=== PATIENT | female | born 1950 | race Caucasian/White ===

== ENCOUNTER → 2016-05-19 | Outpatient (CLI) | payer MEDICARE ==
[~2016-05-19] MED LIST: HYDR-3535 PO; MUSCLE RELAXANT; PREG75 PO; PRIM50TA PO; VENL50TA PO; WALKER ROLLING; XANA2TAB2 PO
[2016-05-19 12:23] LABS: AUTOMATED NEUTROPHIL # 5.2 TH/MM3 (1.8-7.7); BASOPHIL % 0.6 % (0.0-2.0); EOSINOPHIL # 0.1 TH/MM3 (0-0.4); EOSINOPHIL % 1.4 % (0.0-4.0); HEMO FLAGS DIFF FINAL; LYMPH % 23.1 % (9.0-44.0); LYMPHOCYTE # 1.8 TH/MM3 (1.0-4.8); MEAN CELL VOLUME 94.4 FL (80.0-100.0); MEAN CORPUSCULAR HEMOGLOBIN 31.1 PG (27.0-34.0); MONO % 5.9 % (0.0-8.0); PLATELET COUNT 278 TH/MM3 (150-450); RED BLOOD COUNT 4.77 MIL/MM3 (4.00-5.30); RED CELL DISTRIBUTION WIDTH 13.6 % (11.6-17.2); WHITE BLOOD COUNT 7.6 TH/MM3 (4.0-11.0)
[2016-05-19 12:51] LABS: BLOOD, URINE NEG (NEG); GLUCOSE,URINE NEG (NEG); HYALINE CAST, URINE 1 /lpf (RARE); KETONE, URINE NEG (NEG); MUCUS URINE FEW /lpf (OCC); NITRITE,URINE NEG (NEG); PH, URINE 6.5 (5.0-8.5); SQUAMOUS EPITHELIAL CELL URINE <1 /hpf (0-5); URINE COLOR LIGHT-YELLOW (YELLW/STRAW)
[2016-05-19 13:12] LABS: ALKALINE PHOSPHATASE 122 U/L (45-117); ALT (GPT) 15 U/L (10-53); ANION GAP 5 MEQ/L (5-15); AST (GOT) 10 U/L (15-37); BICARBONATE 29.9 MEQ/L (21.0-32.0); BLOOD UREA NITROGEN 13 MG/DL (7-18); CHLORIDE 103 MEQ/L (98-107); GLOMERULAR FILTRATION RATE 82 ML/MIN (>89); GLUCOSE,FASTING 93 MG/DL (74-99); HDL CHOLESTEROL 76.6 MG/DL (40.0-60.0); LDL CHOLESTEROL 139 MG/DL (0-99); SODIUM (NA) 138 MEQ/L (136-145); THYROXINE (T4) 7.5 MCG/DL (4.8-13.9); TOTAL BILIRUBIN ADULT 0.3 MG/DL (0.2-1.0)
== END ==
LOC: PLAB 10:09
DX: M50.00 Cervical disc disorder with myelopathy, unspecified cervical region (principal); E78.5 Hyperlipidemia, unspecified; Z12.11 Encounter for screening for malignant neoplasm of colon; R53.83 Other fatigue
CPT/HCPCS: 36415; 80053; 80061; 81001; 84436; 84443; 84480; 85025

== ENCOUNTER → 2017-02-27 | Day surgery (SDC) | payer MEDICARE ==
[~2017-02-27] VITALS: Ht 170.2 cm; Wt 105.5 kg
[~2017-02-27] MED LIST changes: +*RESP: ALBUTEROL 2.5 MG/3 ML NEB (PRN) PERIprocedural Use ONLY NEB ONE; +ACETAMINOPHEN/HYDROcodone 325 MG/5 MG TAB PO PRN; +BUPIVACAINE HCL PF 0.25% 30 ML VIAL ONE; +BUPIVACAINE/EPINEPHRINE 0.25% 50 ML VIAL ONE; +CHLORHEXIDINE GLUCONATE 2 % 1 PACK (2 CLOTHS) TOPICAL PRN; +CHLORHEXIDINE GLUCONATE 4% SOLN 120 ML BTL TOPICAL SCH; +CLINDAMYCIN 900 MG/NS 100 ML IV SCH; +DO NOT ADM ANY ANTICOAGULANT DRUGS PRN; +GABA300C5 PO; +GENTAMICIN SULFATE 80 MG/2 ML VIAL ONE; +GLYCOPYRROLATE 1 MG/5 ML SYRINGE IV PUSH ONE; +HYDR-3583 PO; +INSULIN HUMAN REGULAR 1,000 UNITS/10 ML VIAL SQ PRN; +LACTATED RINGER'S 1000 ML IV PRN; +LIDOCAINE HCL 1% PF 5 ML AMPULE OTHER ONE; +METOPROLOL TARTRATE 25 MG TAB PO PRN; +MORPHINE SULFATE 4 MG/ML INJ IV PUSH PRN; +NEOSTIGMINE 3 MG/3 ML SYR IV ONE; +ONDANSETRON HCL 4 MG/2 ML VIAL IV PUSH ONE; +ONDANSETRON HCL 4 MG/2 ML VIAL IV PUSH PRN; +PHENYLEPH/NS 1000 MCG/10 ML SYR IV ONE; +PRIM50TA5 PO; +PROPOFOL 200 MG/20 ML AMP IV ONE; +ROCURONIUM INJ 50 MG/5 ML SYRINGE IV PUSH ONE; +SODIUM CHLOR 0.9% 250 ML INJ 0 ML ONE; +SODIUM CHLORID 0.9% 500 ML IV PRN; +SODIUM CHLORIDE 0.9% FLUSH 10 ML FLUSH IV FLUSH PRN; +SODIUM CHLORIDE 0.9% FLUSH 10 ML FLUSH IV FLUSH SCH; +TEMA30CA PO; +TRAM50TA PO; +VALG1TAB PO; +VANCOMYCIN HCL 1000 MG VIAL ONE; +VENL75TA PO; +ceFAZolin INJ 1,000 MG VIAL ONE
--- NOTE | 2017-02-27 08:14 | RADRPT ---
EXAM DATE/TIME: 02/27/2017 06:58 [facility] COMPARISON: No previous studies available for comparison. INDICATIONS : Evaluate for pneumonia, pneumothorax, or communicable disease. Pre op left hand surgery. MEDICAL HISTORY : None. SURGICAL HISTORY : None. ENCOUNTER: Initial ACUITY: 1 day PAIN SCORE: 0/10 LOCATION: Bilateral chest FINDINGS: A single view of the chest demonstrates the lungs to be hyperaerated without evidence of mass, infilt rate or effusion. The cardiomediastinal contours are unremarkable. Osseous structures are intact. CONCLUSION: 1. COPD 2. No acute process. Zac Anand MD on February 27, 2017 at 8:11 Board Certified Radiologist. This report was verified electronically.
[2017-02-27 08:55] LABS: AUTOMATED NEUTROPHIL # 7.4 TH/MM3 (1.8-7.7); BASOPHIL # 0.1 TH/MM3 (0-0.2); BASOPHIL % 0.8 % (0.0-2.0); EOSINOPHIL # 0.1 TH/MM3 (0-0.4); HEMATOCRIT 44.5 % (35.0-46.0); LYMPH % 13.8 % (9.0-44.0); LYMPHOCYTE # 1.3 TH/MM3 (1.0-4.8); MEAN CELL VOLUME 89.6 FL (80.0-100.0); MEAN CORPUSCULAR HEMOGLOBIN 30.2 PG (27.0-34.0); MEAN CORPUSCULAR HGB CONC 33.7 % (32.0-36.0); MEAN PLATELET VOLUME 9.3 FL (7.0-11.0); MONO % 6.2 % (0.0-8.0); MONOCYTE # 0.6 TH/MM3 (0-0.9); NEUT % 78.2 % (16.0-70.0); PLATELET COUNT 293 TH/MM3 (150-450); RED BLOOD COUNT 4.97 MIL/MM3 (4.00-5.30); RED CELL DISTRIBUTION WIDTH 14.1 % (11.6-17.2); WHITE BLOOD COUNT 9.5 TH/MM3 (4.0-11.0)
--- NOTE | 2017-02-27 11:47 | PD.OP ---
cc: Luke Ramon Jr., MD Operative Report Date of Surgery: Feb 27, 2017 Preoperative Diagnosis: Left hand dorsal calcified ganglion cyst Postoperative Diagnosis: Same Procedure: Left hand dorsal calcified ganglion cyst removal Anesthesia: LMA Surgeon: Luke Ramon Computer Technical Specialist(s): staff Resident Surgeon: none Operation and Findings: Patient was seen preoperatively and found to have a painful non-mobile hard calcified nodule on the dorsal aspect of left hand. Differential diagnosis includes calcified ganglion cyst versus dorsal osteophyte. We Discussed operative as well as nonoperative options with the patient. She would like to have the cyst excised. Risks, benefits and alternative discussed the patient. She expressed understanding and agreed with my recommendations. Plan for excision of the dorsal ganglion cyst. Timeout was performed. The patient was placed supine on the operating table. The left upper extremity was prepped and draped in a sterile fashion. A longitudinal dorsal incision overlying the dorsal cyst was utilized. Dissection taken down to the cyst while taking care to mobilize and protect the extensor tendons and veins. The cyst was rather calcified and hard. Using a rongeur, it was excised and completely removed. A rasp was used to smooth down the area. Bone wax was also used to control bleeding. The wound was thoroughly irrigated and closed with 3-0 nylon. Quarter percent Marcaine plain was used for local anesthesia. Sterile dressing was applied. Patient was awakened and transferred to recovery room in stable condition Luke Ramon Jr., MD Feb 27, 2017 11:47
--- NOTE | 2017-02-27 12:15 | RADRPT ---
EXAM DATE/TIME: 02/27/2017 11:32 [facility] COMPARISON: No previous studies available for comparison. INDICATIONS : Exostoxis incision left hand. MEDICAL HISTORY : None. SURGICAL HISTORY : None. ENCOUNTER: Initial ACUITY: 1 day PAIN SCORE: Non-responsive. LOCATION: Left Hand FINDINGS: Screw is seen bridging the carpal navicular fracture. No other abnormalities appreciated. CONCLUSION: Screw bridging carpal navicular fracture, otherwise negative. Sahil Hewitt MD FACR on February 27, 2017 at 12:11 Board Certified Radiologist. This report was verified electronically.
--- NOTE | 2017-02-27 13:26 | EKG ---
Date Performed: 02/27/2017 Time Performed: 08:04:12 PTAGE: 66 years EKG: Sinus rhythm NORMAL ECG PREVIOUS TRACING : 08/23/2014 16.28 Compared to prior tracing no significant change DOCTOR: Bruce Coronel Interpretating Date/Time 02/27/2017 13:24:31
[2017-02-27 14:30] VITALS: BP 142/95; PULSE 92; RESP 20; TEMP 98.3; O2SAT 95
== END | disposition home or self-care (01) ==
LOC: HSDC 07:26
PROVIDERS: ATTEND Orthopaedic Surgery
DX: M67.442 Ganglion, left hand (principal); Z01.818 Encounter for other preprocedural examination; Z01.810 Encounter for preprocedural cardiovascular examination
CPT/HCPCS: 01810; 26160; 71010; 73120; 76000; 85025; 93005; 94664; J1580; J2370; J2405; J2710; J3010; J7120; J7613; J0690; J3370; J7050

== ENCOUNTER 2017-03-12 13:32 | Emergency (ER) | payer MEDICARE ==
[~2017-03-12] VITALS: Ht 170.2 cm; Wt 105.2 kg
[~2017-03-12 13:32] MED LIST changes: -*RESP: ALBUTEROL 2.5 MG/3 ML NEB (PRN) PERIprocedural Use ONLY NEB ONE; -ACETAMINOPHEN/HYDROcodone 325 MG/5 MG TAB PO PRN; -BUPIVACAINE HCL PF 0.25% 30 ML VIAL ONE; -BUPIVACAINE/EPINEPHRINE 0.25% 50 ML VIAL ONE; -CHLORHEXIDINE GLUCONATE 2 % 1 PACK (2 CLOTHS) TOPICAL PRN; -CHLORHEXIDINE GLUCONATE 4% SOLN 120 ML BTL TOPICAL SCH; -CLINDAMYCIN 900 MG/NS 100 ML IV SCH; -DO NOT ADM ANY ANTICOAGULANT DRUGS PRN; -GENTAMICIN SULFATE 80 MG/2 ML VIAL ONE; -GLYCOPYRROLATE 1 MG/5 ML SYRINGE IV PUSH ONE; -HYDR-3535 PO; -INSULIN HUMAN REGULAR 1,000 UNITS/10 ML VIAL SQ PRN; -LACTATED RINGER'S 1000 ML IV PRN; -LIDOCAINE HCL 1% PF 5 ML AMPULE OTHER ONE; -METOPROLOL TARTRATE 25 MG TAB PO PRN; -MORPHINE SULFATE 4 MG/ML INJ IV PUSH PRN; -MUSCLE RELAXANT; -NEOSTIGMINE 3 MG/3 ML SYR IV ONE; -ONDANSETRON HCL 4 MG/2 ML VIAL IV PUSH ONE; -ONDANSETRON HCL 4 MG/2 ML VIAL IV PUSH PRN; -PHENYLEPH/NS 1000 MCG/10 ML SYR IV ONE; -PREG75 PO; -PRIM50TA PO; -PROPOFOL 200 MG/20 ML AMP IV ONE; -ROCURONIUM INJ 50 MG/5 ML SYRINGE IV PUSH ONE; -SODIUM CHLOR 0.9% 250 ML INJ 0 ML ONE; -SODIUM CHLORID 0.9% 500 ML IV PRN; -SODIUM CHLORIDE 0.9% FLUSH 10 ML FLUSH IV FLUSH PRN; -SODIUM CHLORIDE 0.9% FLUSH 10 ML FLUSH IV FLUSH SCH; -VANCOMYCIN HCL 1000 MG VIAL ONE; -VENL50TA PO; -WALKER ROLLING; -ceFAZolin INJ 1,000 MG VIAL ONE
[2017-03-12 13:43] VITALS: BP 161/90; PULSE 85; RESP 18; TEMP 97.5; O2SAT 95
--- NOTE | 2017-03-12 13:59 | PD ---
HPI Chief Complaint: Wound/Suture/Staple Re-Check Time Seen by Provider: 13:57 Travel History International Travel<30 days: No Contact w/Intl Traveler<30days: No Traveled to known affect area: No History of Present Illness HPI 66-year-old female presents to the emergency department for wound check and suture removal status post recent orthopedic surgery to the left dorsal hand. Surgery was performed by Dr. [facility]ast[facility] 2 weeks ago. Patient has no complaints. The wound appears to be healing well. PFSH Past Medical History Arthritis: Yes Asthma: Yes Autoimmune Disease: No Anxiety: Yes Depression: Yes Heart Rhythm Problems: No Cancer: No Cardiovascular Problems: Yes High Cholesterol: No Chemotherapy: No Chest Pain: No Congestive Heart Failure: No COPD: No Cerebrovascular Accident: No Diabetes: No Diminished Hearing: No Endocrine: No Gastrointestinal Disorders: Yes GERD: No Genitourinary: No Hepatitis: No Hiatal Hernia: No Immune Disorder: No Kidney Stones: No Musculoskeletal: Yes (OA L WRIST, KNEE PAIN) Neurologic: Yes Psychiatric: Yes (ANXIETY) Reproductive: No Respiratory: Yes Immunizations Current: Yes Migraines: No Pneumonia: Yes Radiation Therapy: No Renal Failure: No Seizures: No Shingles: Yes Sickle Cell Disease: No Sleep Apnea: No Thyroid Disease: No Ulcer: No Menopausal: Yes : 2 Para: 2 Miscarriage: 0 : 0 Past Surgical History Abdominal Surgery: Yes (GALLBLADDER REMOVAL) AICD: No Appendectomy: Yes Arteriovenous Shunt: No Body Medical Devices: L WRIST SCREWS Cardiac Surgery: No Cholecystectomy: Yes Ear Surgery: No Endocrine Surgery: No Eye Surgery: No Genitourinary Surgery: No Gynecologic Surgery: Yes (PARTIAL AND FULL HYSTERECTOMY) Hysterectomy: Yes Insulin Pump: No Joint Replacement: No Oral Surgery: Yes (TONSILLECTOMY) Pacemaker: No Thoracic Surgery: No Tonsillectomy: Yes Other Surgery: Yes (RT BREAST LUMP BENIGN) Social History Alcohol Use: No Tobacco Use: Yes (<1 ppd) Substance Use: Yes (MARIJUANA 12 YEARS AGO IN THE LATE EVENINGS) Allergies-Medications (Allergen,Severity, Reaction): Coded Allergies: Sulfa (Sulfonamide Antibiotics) (Unverified Allergy, Severe, NAUSEA, 02/27) acetaminophen (Unverified Allergy, Severe, Itching, 02/27/17) aspirin (Unverified Allergy, Severe, HIVES AND NAUSEA, 02/27/17) bee venom protein (honey bee) (Unverified Allergy, Severe, Anaphylaxis, ) codeine (Unverified Allergy, Severe, NAUSEA/HIVES, 02/27/17) diatrizoate meglumine (Unverified Allergy, Severe, HIVES, 02/27/17) gadobenic acid (Unverified Allergy, Severe, HIVES, 02/27/17) gadodiamide (Unverified Allergy, Severe, HIVES, 02/27/17) gadoteridol (Unverified Allergy, Severe, HIVES, 02/27/17) hydromorphone (Unverified Allergy, Severe, Nausea/Vomiting, 02/27/17) iodine (Unverified Allergy, Severe, Hives, 02/27/17) iodixanol (Unverified Allergy, Severe, HIVES, 02/27/17) iohexol (Unverified Allergy, Severe, HIVES, 02/27/17) meperidine (Unverified Allergy, Severe, NAUSEA, 02/27/17) oxycodone (Unverified Allergy, Severe, Itching, 02/27/17) penicillin G (Unverified Allergy, Severe, Nausea/Vomiting, 02/27/17) potassium iodide (Unverified Allergy, Severe, Hives, 02/27/17) povidone-iodine (Unverified Allergy, Severe, Hives, 02/27/17) propoxyphene (Unverified Allergy, Severe, NAUSEA, 02/27/17) shellfish derived (Unverified Allergy, Severe, HIVES, 02/27/17) sodium iodide (Unverified Allergy, Severe, Hives, 02/27/17) Reported Meds & Prescriptions Reported Meds & Active Scripts Active Tramadol (Tramadol HCl) 50 Mg Tab 50 Mg PO Q4H PRN Reported Effexor (Venlafaxine HCl) 75 Mg Tab 75 Mg PO BID Valganciclovir 450 Mg Tab 450 Mg PO BID Temazepam 30 Mg Cap 30 Mg PO HS PRN Primidone 50 Mg Tab 50 Mg PO BID Hydrocodone-Acetaminophen 10-325 mg Tab 1 Tab PO Q4H PRN Gabapentin 300 Mg Cap 300 Mg PO TID PRN Xanax (Alprazolam) 2 Mg Tab 2 Mg PO Q8H PRN Review of Systems Except as stated in HPI: all other systems reviewed are Neg General / Constitutional: No: Fever Eyes: No: Visual changes HENT: No: Headaches Cardiovascular: No: Chest Pain or Discomfort Respiratory: No: Shortness of Breath Gastrointestinal: No: Abdominal Pain Genitourinary: No: Dysuria Musculoskeletal: No: Pain Skin: No Rash Neurologic: No: Weakness Psychiatric: No: Depression Endocrine: No: Polydipsia Hematologic/Lymphatic: No: Easy Bruising Physical Exam Narrative GENERAL: Patient is in no acute distress. SKIN: Warm and dry. Well healing incision site to the left dorsal hand. [address]. No signs of wound dehiscence or cellulitis. HEAD: Atraumatic. Normocephalic. EYES: Pupils equal and round. No scleral icterus. No injection or drainage. ENT: No nasal bleeding or discharge. Mucous membranes pink and moist. Airway is patent NECK: Trachea midline. Supple. CARDIOVASCULAR: Regular rate and rhythm. RESPIRATORY: No accessory muscle use. MUSCULOSKELETAL: Extremities without clubbing, cyanosis, or edema. No obvious deformities. NEUROLOGICAL: Awake and alert. No obvious cranial nerve deficits. Motor grossly within normal limits. Five out of 5 muscle strength in the arms and legs. Normal speech. PSYCHIATRIC: Appropriate mood and affect; insight and judgment normal. Data Data Last Documented VS Vital Signs Date Time Temp Pulse Resp B/P (MAP) Pulse Ox O2 Delivery O2 Flow Rate FiO2 03/12/17 13:43 97.5 85 18 161/90 (113) 95 Orders Orders Ed Discharge Order (03/12/17 13:59) MDM Medical Decision Making Medical Screen Exam Complete: Yes Emergency Medical Condition: Yes Differential Diagnosis Status post surgery. Wound check. Suture removal. Narrative Course Sutures removed without difficulty. Dressing placed over the wound. Diagnosis Primary Impression: Encounter for removal of sutures Referrals: Primary Care Physician Patient Instructions: General Instructions, Stitches Removal (ED) Additional Instructions: Sutures removed without difficulty. She is to clean and covered wound as needed. No further treatment necessary. Med/Other Pt SpecificInfo: Wound Care Disposition: DISCHARGE HOME Condition: Stable Carlos Haskins Mar 12, 2017 13:59
== END 2017-03-12 14:14 | disposition home or self-care (01) ==
LOC: PHEFT 13:32
DX: Z48.02 Encounter for removal of sutures (principal)
CPT/HCPCS: 99281

== ENCOUNTER 2017-05-06 10:56 | Inpatient (IN) | payer MEDICARE ==
[~2017-05-06] VITALS: Ht 170.2 cm; Wt 107.0 kg
[~2017-05-06 10:56] MED LIST changes: -GABA300C5 PO; -PRIM50TA5 PO; -VALG1TAB PO; -VENL75TA PO
[2017-05-06 11:06] VITALS: BP 133/84; PULSE 111; RESP 18; TEMP 98; O2SAT 93
--- NOTE | 2017-05-06 11:27 | PD ---
HPI Chief Complaint: Musculoskeletal Complaint Time Seen by Provider: 11:13 Travel History International Travel<30 days: No Contact w/Intl Traveler<30days: No Traveled to known affect area: No History of Present Illness HPI This is a 66-year-old female who presents to the emergency department with 4 days of pain in her left leg, constant, severe, worse with walking improved with rest concentrated over her left inner thigh. She denies any injuries. She denies any fevers or chills. She did have a recent surgery on her left hand. She's never had a blood clot before. PFSH Past Medical History Hx Anticoagulant Therapy: No Arthritis: Yes Asthma: Yes Autoimmune Disease: No Anxiety: Yes Depression: Yes Heart Rhythm Problems: No Cancer: No Cardiovascular Problems: Yes High Cholesterol: No Chemotherapy: No Chest Pain: No Congestive Heart Failure: No COPD: No Cerebrovascular Accident: No Diabetes: No Diminished Hearing: No Endocrine: No Gastrointestinal Disorders: Yes GERD: No Genitourinary: No Headaches: No Hepatitis: No Hiatal Hernia: No Heparin Induced Thrombocytopen: No Hypertension: No Immune Disorder: No Implanted Vascular Access Dvce: No Kidney Stones: No Musculoskeletal: Yes (OA L WRIST, KNEE PAIN) Neurologic: Yes Psychiatric: Yes (ANXIETY) Reproductive: No Respiratory: Yes Immunizations Current: Yes Migraines: No Pneumonia: Yes Radiation Therapy: No Renal Failure: No Seizures: No Shingles: Yes Sickle Cell Disease: No Sleep Apnea: No Thyroid Disease: No Ulcer: No Menopausal: Yes : 2 Para: 2 Miscarriage: 0 : 0 Past Surgical History Abdominal Surgery: Yes (GALLBLADDER REMOVAL) AICD: No Appendectomy: Yes Arteriovenous Shunt: No Body Medical Devices: L WRIST SCREWS Cardiac Surgery: No Cholecystectomy: Yes Ear Surgery: No Endocrine Surgery: No Eye Surgery: No Genitourinary Surgery: No Gynecologic Surgery: Yes (PARTIAL AND FULL HYSTERECTOMY) Hysterectomy: Yes Insulin Pump: No Joint Replacement: No Neurologic Surgery: No Oral Surgery: Yes (TONSILLECTOMY) Pacemaker: No Thoracic Surgery: No Tonsillectomy: Yes Other Surgery: Yes (RT BREAST LUMP BENIGN) Social History Alcohol Use: No Tobacco Use: Yes (<1 ppd) Substance Use: Yes (MARIJUANA 12 YEARS AGO IN THE LATE EVENINGS) Allergies-Medications (Allergen,Severity, Reaction): Coded Allergies: Sulfa (Sulfonamide Antibiotics) (Unverified Allergy, Severe, NAUSEA, 1/6/ 18) acetaminophen (Unverified Allergy, Severe, Itching, 05/06/17) aspirin (Unverified Allergy, Severe, HIVES AND NAUSEA, 05/06/17) bee venom protein (honey bee) (Unverified Allergy, Severe, Anaphylaxis, 05/06/17) codeine (Unverified Allergy, Severe, NAUSEA/HIVES, 05/06/17) diatrizoate meglumine (Unverified Allergy, Severe, HIVES, 05/06/17) gadobenic acid (Unverified Allergy, Severe, HIVES, 05/06/17) gadodiamide (Unverified Allergy, Severe, HIVES, 05/06/17) gadoteridol (Unverified Allergy, Severe, HIVES, 05/06/17) hydromorphone (Unverified Allergy, Severe, Nausea/Vomiting, 05/06/17) iodine (Unverified Allergy, Severe, Hives, 05/06/17) iodixanol (Unverified Allergy, Severe, HIVES, 05/06/17) iohexol (Unverified Allergy, Severe, HIVES, 05/06/17) meperidine (Unverified Allergy, Severe, NAUSEA, 05/06/17) oxycodone (Unverified Allergy, Severe, Itching, 05/06/17) penicillin G (Unverified Allergy, Severe, Nausea/Vomiting, 05/06/17) potassium iodide (Unverified Allergy, Severe, Hives, 05/06/17) povidone-iodine (Unverified Allergy, Severe, Hives, 05/06/17) propoxyphene (Unverified Allergy, Severe, NAUSEA, 05/06/17) shellfish derived (Unverified Allergy, Severe, HIVES, 05/06/17) sodium iodide (Unverified Allergy, Severe, Hives, 05/06/17) Reported Meds & Prescriptions Reported Meds & Active Scripts Active Reported Primidone 50 Mg Tab 50 Mg PO BID Temazepam 30 Mg Cap 30 Mg PO HS PRN Hydrocodone-Acetaminophen 10-325 mg Tab 1 Tab PO Q4H PRN Xanax (Alprazolam) 2 Mg Tab 2 Mg PO Q8H PRN Review of Systems Except as stated in HPI: all other systems reviewed are Neg Physical Exam Narrative GENERAL:Well appearing, no acute distress SKIN: Erythema and warmth of the left medial upper thigh ending at the inguinal area with no vaginal involvement HEAD: Atraumatic. Normocephalic. EYES: Pupils equal and round. No injection or drainage. ENT: Moist mucous membranes NECK: Trachea midline. CARDIOVASCULAR: Regular rate and rhythm. No murmur appreciated. 1+ DP pulse in the left lower extremity, 2+ DP pulse in the right lower extremity RESPIRATORY: Diffuse wheezing. GASTROINTESTINAL: Abdomen soft, non-tender, nondistended. MUSCULOSKELETAL: No obvious deformities. Painless range of motion at the left knee, some pain with flexion of the left hip but no obvious effusion or warmth at the knee or hip on the left side. NEUROLOGICAL: Awake and alert. No obvious cranial nerve deficits. PSYCHIATRIC: Appropriate mood and affect; insight and judgment normal. Data Data Last Documented VS Vital Signs Date Time Temp Pulse Resp B/P (MAP) Pulse Ox O2 Delivery O2 Flow Rate FiO2 05/06/17 12:43 91 18 141/70 (93) 92 Room Air 05/06/17 11:06 98.0 Orders Orders Complete Blood Count With Diff (05/06/17 11:21) Comprehensive Metabolic Panel (05/06/17 11:21) [place] Sedimentation Rate (05/06/17 11:21) C-Reactive Protein (Crp) (05/06/17 11:21) ^ Insert Iv (05/06/17 11:21) Us Leg Venous Doppler (05/06/17 ) Femur (Ap & Lat/2vws) (05/06/17 ) Morphine Inj (Morphine Inj) (05/06/17 11:30) Ondansetron Inj (Zofran Inj) (05/06/17 11:30) Acetamin-Hydrocod 325-10 Mg ([place] 10-32 (05/06/17 11:45) Ed Poc Ultrasound (05/06/17 ) Ventilation & Perfusion Scan (05/06/17 ) Morphine Inj (Morphine Inj) (05/06/17 13:15) Ondansetron Inj (Zofran Inj) (05/06/17 13:15) Enoxaparin Inj (Lovenox Inj) (05/06/17 14:00) Admit Order (Ed Use Only) (05/06/17 ) Labs Laboratory Tests Test 05/06/17 11:40 White Blood Count 9.4 TH/MM3 Red Blood Count 4.77 MIL/MM3 Hemoglobin 14.2 GM/DL Hematocrit 43.1 % Mean Corpuscular Volume 90.2 FL Mean Corpuscular Hemoglobin 29.7 PG Mean Corpuscular Hemoglobin Concent 32.9 % Red Cell Distribution Width 14.5 % Platelet Count 346 TH/MM3 Mean Platelet Volume 8.8 FL Neutrophils (%) (Auto) 70.2 % Lymphocytes (%) (Auto) 18.2 % Monocytes (%) (Auto) 5.6 % Eosinophils (%) (Auto) 2.8 % Basophils (%) (Auto) 3.2 % Neutrophils # (Auto) 6.6 TH/MM3 Lymphocytes # (Auto) 1.7 TH/MM3 Monocytes # (Auto) 0.5 TH/MM3 Eosinophils # (Auto) 0.3 TH/MM3 Basophils # (Auto) 0.3 TH/MM3 CBC Comment DIFF FINAL Differential Comment Erythrocyte Sedimentation Rate 18 mm/hr Blood Urea Nitrogen 14 MG/DL Creatinine 0.84 MG/DL Random Glucose 104 MG/DL Total Protein 6.8 GM/DL Albumin 2.9 GM/DL Calcium Level 8.5 MG/DL Alkaline Phosphatase 97 U/L Aspartate Amino Transf (AST/SGOT) 14 U/L Alanine Aminotransferase (ALT/SGPT) 13 U/L Total Bilirubin 0.3 MG/DL Sodium Level 140 MEQ/L Potassium Level 3.4 MEQ/L Chloride Level 105 MEQ/L Carbon Dioxide Level 28.2 MEQ/L Anion Gap 7 MEQ/L Estimat Glomerular Filtration Rate 68 ML/MIN C-Reactive Protein 9.20 MG/DL [facility] Medical Decision Making Medical Screen Exam Complete: Yes Emergency Medical Condition: Yes Interpretation(s) Afebrile, tachycardic, mild hypoxia 90-93% on room air No leukocytosis Sedimentation rate is normal Mild hypokalemia CRP is elevated Last 24 hours Impressions Lower Extremity Ultrasound 05/06/17 0000 Signed Impressions: Service Date/Time: Saturday, May 06, 2017 12:00 - CONCLUSION: Extensive deep venous thrombosis involving the left iliac, common femoral, superficial femoral , greater saphenous, popliteal and peroneal veins. Eliseo Singh MD Femur X-Ray 05/06/17 0000 Signed Impressions: Service Date/Time: Saturday, May 06, 2017 12:28 - CONCLUSION: 1. No acute fracture or dislocation. 2. Degenerative changes involving the left hip and knee joints Eliseo Singh MD Differential Diagnosis DVT, cellulitis, phlegmasia cerulea dolens, contusion, sprain Narrative Course This is a 66-year-old female who presents to the emergency department with swelling of her left lower extremity and pain that's been going on for 4 days. She was placed on a monitor and an IV was established. Labs are obtained which were reassuring. Ultrasound demonstrates extensive DVT in the left lower extremity. Given iliofemoral involvement, patient will be admitted for anticoagulation. She does have a weaker pulse in the left lower extremity than the right but she has a palpable pulse and normal capillary refill so I don't think this reflects phlegmasia cerulea dolens at this time. Patient also is slightly tachycardic and hypoxic on arrival. VQ scan will be obtained to evaluate for pulmonary embolism as the patient has a contrast allergy. Physician Communication Physician Communication Discussed with Dr. Arias Diagnosis Primary Impression: DVT (deep venous thrombosis) Qualified Codes: I82.412 - Acute embolism and thrombosis of left femoral vein Admitting Information Admitting Physician Requests: Admit Verenice Robbins MD May 06, 2017 11:27
[2017-05-06] MEDS ORDERED: PRIM50TA5 PO ×2 (11:29→17:29)
[2017-05-06] MEDS ORDERED: MORPHINE SULFATE 2 MG/ML INJ IV PUSH ONE ×2 (11:30→13:15)
[2017-05-06] MEDS ORDERED: ONDANSETRON HCL 4 MG/2 ML VIAL IV PUSH ONE ×2 (11:30→13:15)
[2017-05-06] MEDS ORDERED: ACETAMINOPHEN/HYDROcodone 325 MG/10 MG TAB PO ONE (11:45)
[2017-05-06 11:48] LABS: AUTOMATED NEUTROPHIL # 6.6 TH/MM3 (1.8-7.7); BASOPHIL # 0.3 TH/MM3 (0-0.2); BASOPHIL % 3.2 % (0.0-2.0); EOSINOPHIL # 0.3 TH/MM3 (0-0.4); EOSINOPHIL % 2.8 % (0.0-4.0); HEMATOCRIT 43.1 % (35.0-46.0); HEMOGLOBIN 14.2 GM/DL (11.6-15.3); LYMPH % 18.2 % (9.0-44.0); LYMPHOCYTE # 1.7 TH/MM3 (1.0-4.8); MEAN CELL VOLUME 90.2 FL (80.0-100.0); MEAN CORPUSCULAR HEMOGLOBIN 29.7 PG (27.0-34.0); MEAN CORPUSCULAR HGB CONC 32.9 % (32.0-36.0); MEAN PLATELET VOLUME 8.8 FL (7.0-11.0); MONO % 5.6 % (0.0-8.0); MONOCYTE # 0.5 TH/MM3 (0-0.9); NEUT % 70.2 % (16.0-70.0); PLATELET COUNT 346 TH/MM3 (150-450); RED BLOOD COUNT 4.77 MIL/MM3 (4.00-5.30); RED CELL DISTRIBUTION WIDTH 14.5 % (11.6-17.2); WHITE BLOOD COUNT 9.4 TH/MM3 (4.0-11.0)
[2017-05-06 11:59] LABS: CHLORIDE 105 MEQ/L (98-107); SODIUM (NA) 140 MEQ/L (136-145)
[2017-05-06 12:01] LABS: CALCIUM 8.5 MG/DL (8.5-10.1)
[2017-05-06 12:02] LABS: ALBUMIN 2.9 GM/DL (3.4-5.0); BICARBONATE 28.2 MEQ/L (21.0-32.0); BLOOD UREA NITROGEN 14 MG/DL (7-18); GLUCOSE,RANDOM 104 MG/DL (74-106)
[2017-05-06 12:05] LABS: ALT (GPT) 13 U/L (10-53); AST (GOT) 14 U/L (15-37); CREATININE 0.84 MG/DL (0.50-1.00); GLOMERULAR FILTRATION RATE 68 ML/MIN (>89)
[2017-05-06 12:07] LABS: TOTAL BILIRUBIN ADULT 0.3 MG/DL (0.2-1.0); TOTAL PROTEIN 6.8 GM/DL (6.4-8.2)
[2017-05-06 12:08] LABS: ALKALINE PHOSPHATASE 97 U/L (45-117)
--- NOTE | 2017-05-06 12:23 | RADRPT ---
EXAM DATE/TIME: 05/06/2017 12:00 [facility] COMPARISON: No previous studies available for comparison. INDICATIONS : Left leg pain. MEDICAL HISTORY : Arthritis. Left leg pain. Neuropathy. Pneumonia. Shingles. Right breast lump, benign. SURGICAL HISTORY : Tonsillectomy. Cholecystectomy. Appendectomy. Hysterectomy. Left wrist surgery. Right ankle surgery. ENCOUNTER: Initial ACUITY: 1 day PAIN SCORE: 8/10 LOCATION: Left leg. TECHNIQUE: Venous ultrasound of the leg was performed from the inguinal ligament to the proximal calf. Real-isabel e, color Doppler and spectral tracing, compression and augmentation techniques were used. FINDINGS: Extensive deep venous thrombosis is noted involving the left iliac, common femoral, superficial femor al, greater saphenous, popliteal and peroneal veins. CONCLUSION: Extensive deep venous thrombosis involving the left iliac, common femoral, superficia l femoral, greater saphenous, popliteal and peroneal veins. Eliseo Singh MD on May 06, 2017 at 12:17 Board Certified Radiologist. This report was verified electronically.
[2017-05-06 12:43] VITALS: BP 141/70; PULSE 91; RESP 18; O2SAT 92
--- NOTE | 2017-05-06 12:54 | RADRPT ---
EXAM DATE/TIME: 05/06/2017 12:28 [facility] COMPARISON: No previous studies available for comparison. INDICATIONS : Pain. MEDICAL HISTORY : Arthritis. Left leg pain. Neuropathy. Pneumonia. Shingles. Right breast lump, benign. SURGICAL HISTORY : None. ENCOUNTER: Initial ACUITY: 4 - 6 days PAIN SCORE: 7/10 LOCATION: Left Mid femur. FINDINGS: No acute fracture or dislocation of the left femur is noted. Degenerative changes are noted involving the left hip and knee joints. CONCLUSION: 1. No acute fracture or dislocation. 2. Degenerative changes involving the left hip and knee joints Eliseo Singh MD on May 06, 2017 at 12:51 Board Certified Radiologist. This report was verified electronically.
[2017-05-06] MEDS ORDERED: ENOXAPARIN SODIUM 100 MG/ML SYRINGE SQ ONE (14:00)
[2017-05-06 14:14] VITALS: BP 118/78; PULSE 97; RESP 18; O2SAT 92
--- NOTE | 2017-05-06 15:22 | HHI.HP ---
[facility] Primary Care Physician Jasmyn Mensah MD Admission Diagnosis extensive dvt Diagnoses: Chief Complaint: Left leg pain Travel History International Travel<30 Days: No Contact w/Intl Traveler <30 Da: No Traveled to Known Affected Are: No History of Present Illness 66-year-old white female being admitted for extensive DVT. Patient reports experiencing gradual onset pain in left lower leg 4 days ago. Pain progressed and felt like a burning. Worsened with weightbearing which ultimately prompted the patient to come into the emergency room due to its progressive nature. Patient denies any nausea vomiting or any significant shortness of breath to me. Patient denies experiencing any new onset fevers or chills, says she is always cold. Denies ever having any blood clots in the past. Does admit to smoking still. Patient states she takes a baby aspirin daily. Review of Systems Except as stated in HPI: all other systems reviewed are Neg Past Family Social History Past Medical History shingles hand tremors Past Surgical History arthritis Allergies: Coded Allergies: Sulfa (Sulfonamide Antibiotics) (Unverified Allergy, Severe, NAUSEA, ) acetaminophen (Unverified Allergy, Severe, Itching, 05/06/17) aspirin (Unverified Allergy, Severe, HIVES AND NAUSEA, 05/06/17) bee venom protein (honey bee) (Unverified Allergy, Severe, Anaphylaxis, 05/06/17) codeine (Unverified Allergy, Severe, NAUSEA/HIVES, 05/06/17) diatrizoate meglumine (Unverified Allergy, Severe, HIVES, 05/06/17) gadobenic acid (Unverified Allergy, Severe, HIVES, 05/06/17) gadodiamide (Unverified Allergy, Severe, HIVES, 05/06/17) gadoteridol (Unverified Allergy, Severe, HIVES, 05/06/17) hydromorphone (Unverified Allergy, Severe, Nausea/Vomiting, 05/06/17) iodine (Unverified Allergy, Severe, Hives, 05/06/17) iodixanol (Unverified Allergy, Severe, HIVES, 05/06/17) iohexol (Unverified Allergy, Severe, HIVES, 05/06/17) meperidine (Unverified Allergy, Severe, NAUSEA, 05/06/17) oxycodone (Unverified Allergy, Severe, Itching, 05/06/17) penicillin G (Unverified Allergy, Severe, Nausea/Vomiting, 05/06/17) potassium iodide (Unverified Allergy, Severe, Hives, 05/06/17) povidone-iodine (Unverified Allergy, Severe, Hives, 05/06/17) propoxyphene (Unverified Allergy, Severe, NAUSEA, 05/06/17) shellfish derived (Unverified Allergy, Severe, HIVES, 05/06/17) sodium iodide (Unverified Allergy, Severe, Hives, 05/06/17) Family History No family history of blood clots or cancer Social History Active smoker since her teenage years, denies drinking Physical Exam Vital Signs Vital Signs Date Time Temp Pulse Resp B/P (MAP) Pulse Ox O2 Delivery O2 Flow Rate FiO2 05/06/17 14:46 05/06/17 14:14 97 18 118/78 (91) 92 Room Air 05/06/17 12:43 91 18 141/70 (93) 92 Room Air 05/06/17 11:28 93 Room Air 05/06/17 11:06 98.0 111 18 133/84 (100) 93 Physical Exam VS: afebrile GENERAL: Elderly white female lying in bed, no acute distress, obese SKIN: Warm and dry. EYES: No scleral icterus. No injection or drainage. ENT: No nasal bleeding or discharge. Mucous membranes pink and moist. CARDIOVASCULAR: Regular rate and rhythm. no murmurs RESPIRATORY: No accessory muscle use. Clear to auscultation. Breath sounds equal bilaterally. GASTROINTESTINAL: Abdomen soft, non-tender, nondistended. Extremities: No clubbing, cyanosis. Has considerable left thigh edema with corresponding erythema on the medial aspect of the leg; this area is tender to deep palpation MUSCULOSKELETAL: grossly intact ROM with 5/5 strength in upper and lower extremities proximally; adequate muscle bulk and tone for age and habitus. NEUROLOGICAL: Awake and alert. No obvious cranial nerve deficits. No facial droop nor slurred speech noted. PSYCHIATRIC: Appropriate mood and affect; insight and judgment normal. Laboratory Laboratory Tests Test 05/06/17 11:40 White Blood Count 9.4 Red Blood Count 4.77 Hemoglobin 14.2 Hematocrit 43.1 Mean Corpuscular Volume 90.2 Mean Corpuscular Hemoglobin 29.7 Mean Corpuscular Hemoglobin Concent 32.9 Red Cell Distribution Width 14.5 Platelet Count 346 Mean Platelet Volume 8.8 Neutrophils (%) (Auto) 70.2 Lymphocytes (%) (Auto) 18.2 Monocytes (%) (Auto) 5.6 Eosinophils (%) (Auto) 2.8 Basophils (%) (Auto) 3.2 Neutrophils # (Auto) 6.6 Lymphocytes # (Auto) 1.7 Monocytes # (Auto) 0.5 Eosinophils # (Auto) 0.3 Basophils # (Auto) 0.3 CBC Comment DIFF FINAL Differential Comment Erythrocyte Sedimentation Rate 18 Blood Urea Nitrogen 14 Creatinine 0.84 Random Glucose 104 Total Protein 6.8 Albumin 2.9 Calcium Level 8.5 Alkaline Phosphatase 97 Aspartate Amino Transf (AST/SGOT) 14 Alanine Aminotransferase (ALT/SGPT) 13 Total Bilirubin 0.3 Sodium Level 140 Potassium Level 3.4 Chloride Level 105 Carbon Dioxide Level 28.2 Anion Gap 7 Estimat Glomerular Filtration Rate 68 C-Reactive Protein 9.20 Result Diagram: 05/06/17 1140 05/06/17 1140 Imaging Last Impressions Lower Extremity Ultrasound 05/06/17 0000 Signed Impressions: Service Date/Time: Saturday, May 06, 2017 12:00 - CONCLUSION: Extensive deep venous thrombosis involving the left iliac, common femoral, superficial femoral , greater saphenous, popliteal and peroneal veins. Eliseo Singh MD Femur X-Ray 05/06/17 0000 Signed Impressions: Service Date/Time: Saturday, May 06, 2017 12:28 - CONCLUSION: 1. No acute fracture or dislocation. 2. Degenerative changes involving the left hip and knee joints MD Anny Browni VTE Risk Assessment Caprini VTE Risk Assessment: Mod/High Risk (score >= 2) VTE Pharm Contraindication: Coagulopathy,INR elevated Caprini Risk Assessment Model Point Value = 1 Point Value = 2 Point Value = 3 Point Value = 5 Age 41-60 Minor surgery BMI > 25 kg/m2 Swollen legs Varicose veins or History of unexplained or recurrent spontaneous Oral contraceptives or hormone replacement Sepsis (< 1 month) Serious lung disease, including pneumonia (< 1 month) Abnormal pulmonary function Acute myocardial infarction Congestive heart failure (< 1 month) History of inflammatory bowel disease Medical patient at bed rest Age 61-74 Arthroscopic surgery Major open surgery (> 45 min) Laparoscopic surgery (> 45 min) Malignancy Confined to bed (> 72 hours) Immobilizing plaster cast Central venous access Age >= 75 History of VTE Family history of VTE Factor V Leiden Prothrombin [id number] Lupus anticoagulant Anticardiolipin antibodies Elevated serum homocysteine Heparin-induced thrombocytopenia Other congenital or acquired thrombophilia Stroke (< 1 month) Elective arthroplasty Hip, pelvis, or leg fracture Acute spinal cord injury (< 1 month) Prophylaxis Regimen Total Risk Factor Score Risk Level Prophylaxis Regimen 0-1 Low Early ambulation 2 Moderate Order ONE of the following: *Sequential Compression Device (SCD) *Heparin 5000 units SQ BID 3-4 Higher Order ONE of the following medications: *Heparin 5000 units SQ TID *Enoxaparin/Lovenox 40 mg SQ daily (WT < 150 kg, CrCl > 30 mL/min) *Enoxaparin/Lovenox 30 mg SQ daily (WT < 150 kg, CrCl > 10-29 mL/min) *Enoxaparin/Lovenox 30 mg SQ BID (WT < 150 kg, CrCl > 30 mL/min) AND/OR *Sequential Compression Device (SCD) 5 or more Highest Order ONE of the following medications: *Heparin 5000 units SQ TID (Preferred with Epidurals) *Enoxaparin/Lovenox 40 mg SQ daily (WT < 150 kg, CrCl > 30 mL/min) *Enoxaparin/Lovenox 30 mg SQ daily (WT < 150 kg, CrCl > 10-29 mL/min) *Enoxaparin/Lovenox 30 mg SQ BID (WT < 150 kg, CrCl > 30 mL/min) AND *Sequential Compression Device (SCD) Assessment and Plan Assessment and Plan 66-year-old white female being admitted for extensive left lower extremity deep any thrombosis DVT - Likely risk factor is obesity and sedentary lifestyle and smoking - patient counseled about the risks - Weight-based Lovenox twice a day - VQ scan is pending since patient admitted to the emergency department that she had some shortness of breath also leg erythema - Most likely from hemostasis from DVT but will monitor margins daily to ensure no cellulitis occurs with this hand tremors - resume home primidone shingles - resume home valtrex Physician Certification 2 Midnight Certification Type: Admission for Inpatient Services Order for Inpatient Services The services are ordered in accordance with Medicare regulations or non- Medicare payer requirements, as applicable. In the case of services not specified as inpatient-only, they are appropriately provided as inpatient services in accordance with the 2-midnight benchmark. Estimated LOS (days): 2 2 days is the estimated time the patient will need to remain in the hospital, assuming treatment plan goals are met and no additional complications. Post-Hospital Plan: Home Audi Arias MD May 06, 2017 15:22
[2017-05-06 15:30] VITALS: BP 128/64; PULSE 96; RESP 20; TEMP 97; O2SAT 93
[2017-05-06] MEDS ORDERED: TEMAZEPAM 15 MG CAP PO PRN (16:00)
[2017-05-06] MEDS ORDERED: ALPRAZolam 1 MG TAB PO PRN (16:00)
[2017-05-06] MEDS: ACETAMINOPHEN/HYDROcodone 325 MG/10 MG TAB PO PRN ×2 (16:39→20:36)
--- NOTE | 2017-05-06 17:26 | RADRPT ---
EXAM DATE/TIME: 05/06/2017 15:29 [facility] COMPARISON: CHEST SINGLE AP, May 06, 2017, 17:07. INDICATIONS : Left leg pain. DOSE: 8.8 mCi Tc99m MAA IV 0.7 mCi Tc99m DTPA aerosol MEDICAL HISTORY : Deep venous thrombosis. Asthma. Smoker. SURGICAL HISTORY : Appendectomy. Hysterectomy. ENCOUNTER: Initial ACUITY: 1 day PAIN SCALE: 4/10 LOCATION: Left Leg. TECHNIQUE: Following five minutes of tidal breathing of DTPA aerosol, planar images of the lungs were performed in eight projections. The patient was then injected with MAA, and eight-view perfusion scan was perf ormed. FINDINGS: There is a single subsegmental defect involving the lateral segment of the right middle lobe without corresponding radiographic abnormality. The ventilation defect is similar sized perfusion defect. Rem ainder of examination is unremarkable. CONCLUSION: 1. Single subsegmental defect which is matched. Low probability of embolus in Bruce Stack MD on May 06, 2017 at 17:21 Board Certified Radiologist. This report was verified electronically.
--- NOTE | 2017-05-06 17:35 | RADRPT ---
EXAM DATE/TIME: 05/06/2017 17:07 [facility] COMPARISON: CHEST SINGLE AP, February 27, 2017, 6:58. INDICATIONS : Cough. MEDICAL HISTORY : Arthritis. Left leg pain. Neuropathy. Pneumonia. Shingles. Right breast lump, benign. SURGICAL HISTORY : ENCOUNTER: Subsequent ACUITY: 1 day PAIN SCORE: 0/10 LOCATION: Bilateral chest FINDINGS: The cardiac silhouette is enlarged in transverse diameter. The lungs are free of acute parenchymal op acity. No effusions are identified. Osseous structures are intact. The background interstitium is pro minent though this is likely chronic in nature. There has been no significant change when compared to the prior exam. CONCLUSION: Cardiomegaly. No acute cardiopulmonary disease. Bruce Stack MD on May 06, 2017 at 17:32 Board Certified Radiologist. This report was verified electronically.
[2017-05-06 20:00] VITALS: BP 130/61; PULSE 102; RESP 20; TEMP 96; O2SAT 93
[2017-05-06] MEDS ORDERED: PRIMIDONE 50 MG TAB PO ONE (20:30)
[2017-05-06] MEDS: valACYclovir HCL 500 MG TAB PO SCH (20:34)
[2017-05-06] MEDS ORDERED: PRIMIDONE 50 MG TAB PO SCH (21:00)
[2017-05-07] VITALS: BP 113/70; PULSE 104; RESP 20; TEMP 97.8; O2SAT 91
[2017-05-07] MEDS: ACETAMINOPHEN/HYDROcodone 325 MG/10 MG TAB PO PRN ×2 (01:10→05:04)
[2017-05-07] MEDS ORDERED: ENOXAPARIN SODIUM 100 MG/ML SYRINGE SQ SCH (06:00)
[2017-05-07 08:00] VITALS: BP 146/68; PULSE 92; RESP 20; TEMP 97.2; O2SAT 92
[2017-05-07] MEDS ORDERED: KETOROLAC TROMETHAMINE 60 MG/2 ML (IM) VIAL IM PRN (08:15)
[2017-05-07] MEDS ORDERED: oxyCODONE/ACETAMINOPHEN 10 MG/325 MG TAB PO PRN (08:15)
[2017-05-07] MEDS: valACYclovir HCL 500 MG TAB PO SCH (08:40)
[2017-05-07] MEDS ORDERED: PRIMIDONE 50 MG TAB PO SCH (09:00)
[2017-05-07 12:00] VITALS: BP 123/61; PULSE 83; RESP 20; TEMP 97; O2SAT 93
[2017-05-07] MEDS ORDERED: WALKER WHEELS/F1 MIS (12:44)
--- NOTE | 2017-05-07 12:45 | HHI.DCPOC ---
Discharge Care Plan Diagnosis: (1) DVT (deep venous thrombosis) (2) Unsteady gait Additional Problems First complete taking the 15 mg twice a day regimen of Xarelto; then proceed with the once a day 20 mg regimen Goals to Promote Your Health * To prevent worsening of your condition and complications * To maintain your health at the optimal level Directions to Meet Your Goals Take your medications as prescribed Follow your dietary instruction Follow activity as directed Keep your appointments as scheduled Take your immunizations and boosters as scheduled If your symptoms worsen call your PCP, if no PCP go to Urgent Care Center or Emergency Room Smoking is Dangerous to Your Health. Avoid second hand smoke Call the 24-hour hour crisis hotline for domestic abuse at Audi Arias MD May 07, 2017 12:45
[2017-05-07 12:58] VITALS: RESP 16
[2017-05-07] MEDS ORDERED: VALT500T PO (13:00)
[2017-05-07] MEDS ORDERED: XARE15TA PO (13:00)
[2017-05-07] MEDS ORDERED: XARE20TA PO (13:00)
--- NOTE | 2017-05-07 13:04 | HHI.PR ---
Subjective Remarks Nursing denies any deterioration since last night. Patient herself says she wants to go home. She does not want me to write any further pain medications as she is already on home Lortabs. She states that she has been able to get up and go to the bathroom without falling. Objective Vital Signs Date Time Temp Pulse Resp B/P (MAP) Pulse Ox O2 Delivery O2 Flow Rate FiO2 05/07/17 12:58 16 05/07/17 12:00 97.0 83 20 123/61 (81) 93 05/07/17 09:54 17 05/07/17 08:00 97.2 92 20 146/68 (94) 92 05/07/17 00:00 97.8 104 20 113/70 (84) 91 05/06/17 20:00 96.0 102 20 130/61 (84) 93 05/06/17 17:39 18 05/06/17 15:30 97.0 96 20 128/64 (85) 93 05/06/17 14:46 05/06/17 14:14 97 18 118/78 (91) 92 Room Air I/O 05/06/17 05/06/17 05/06/17 05/07/17 05/07/17 05/07/17 06:59 14:59 22:59 06:59 14:59 22:59 Intake Total 500 ml 480 ml Balance 500 ml 480 ml Intake Oral 500 ml 480 ml # Voids 1 2 # Bowel Movements 0 Result Diagram: 05/06/17 1140 05/06/17 1140 Objective Remarks Left leg was significantly improved erythema since yesterday Patient unlabored breathing Has mild tenderness palpation over the left inner thigh Patient has mildly unsteady gait but can walk with a limp in her left leg A/P Assessment and Plan VQ scan is negative for pulmonary embolus. Patient is clinically stable for discharge today. We'll discharge on Xarelto and with a walker. Patient was counseled extensively on waiting smoking and that she can do this under the care of her primary care provider with further pharmacological assistance of chest and takes. She was informed that she would have to at least take her blood thinner for 3-6 months. She will receive a walker at home from her [employer] company tomorrow. Before being discharged, the patient adamantly reassured us that she had prescription drug coverage since we told her that she will be discharged on a prescribed oral blood thinner; the pharmacist at her pharmacy also short our counter caser that she did indeed have prescription drug coverage. Post discharge, the patient called back stating that she could not afford the cost of her Xarelto. Her pharmacy was contacted in the prices for her to possibly get Xarelto or paradaxa or Lovenox were also unaffordable. Pt was informed that we had faxed over a coupon card for her to try to get Xarelto and we informed her clearly to obtain it and start taking it tonight; patient stated that she would like to hold off until the morning. However we informed her that it would be a life threatening risk if she decided to delay her anticoagulation any further. She was informed that if she was still unable to process the coupon, to return to the emergency department so that she can receive appropriate anticoagulation. Patient vocalized understanding. > 30 min spent in the care of this patient. Audi Arias MD May 07, 2017 13:04
== END 2017-05-07 14:14 | disposition home or self-care (01) | DRG 301 ==
LOC: PHED 10:56 → PHEDA 13:57 → PH3A 14:42
PROVIDERS: ADMIT Hospitalist; ATTEND Hospitalist
DX: I82.412 Acute embolism and thrombosis of left femoral vein (principal); B02.9 Zoster without complications; F32.9 Major depressive disorder, single episode, unspecified; F41.9 Anxiety disorder, unspecified; F17.200 Nicotine dependence, unspecified, uncomplicated; R00.0 Tachycardia, unspecified; R09.02 Hypoxemia; Z91.041 Radiographic dye allergy status; J45.909 Unspecified asthma, uncomplicated; M19.032 Primary osteoarthritis, left wrist; M25.569 Pain in unspecified knee; M17.10 Unilateral primary osteoarthritis, unspecified knee; Z79.82 Long term (current) use of aspirin; E66.9 Obesity, unspecified; R25.1 Tremor, unspecified; Z90.710 Acquired absence of both cervix and uterus
CPT/HCPCS: 71045; 73552; 78582; 80053; 85025; 85652; 86140; 93971; 96374; 96375; A9540; A9567; J1650; J1885; J2270; J2405

== ENCOUNTER 2017-05-27 12:15 | Emergency (ER) | payer MEDICARE ==
[~2017-05-27 12:15] MED LIST changes: +PRIM50TA5 PO; -TRAM50TA PO; +VALT500T PO; +WALKER WHEELS/F1 MIS; +XARE15TA PO; +XARE20TA PO
[2017-05-27 12:27] VITALS: BP 149/80; PULSE 92; RESP 18; TEMP 97.5; O2SAT 94
--- NOTE | 2017-05-27 12:54 | PD ---
HPI Chief Complaint: Dizziness Time Seen by Provider: 12:36 Travel History International Travel<30 days: No Contact w/Intl Traveler<30days: No Traveled to known affect area: No History of Present Illness HPI 66yo F with PMH of left DVT on xarelto here with c/o generalized weakness and lightheadedness today. Said she got up from bed at 6am today and fell lightheaded and fell onto her buttocks. Denies any head trauma. Later in the day, pt was bending down to feed her cat and felt lightheaded and fell onto her buttocks again. Again, denies any head trauma or LOC. Denies any fever, chest pain, sob, n/v, abdominal pain, focal weakness or numbness, back pain, headache , visual changes, tinnitus. Pt said she has not eaten today and requesting food. PFSH Past Medical History Hx Anticoagulant Therapy: No Arthritis: Yes Asthma: Yes Autoimmune Disease: No Anxiety: Yes Depression: Yes Heart Rhythm Problems: No Cancer: No Cardiovascular Problems: Yes High Cholesterol: No Chemotherapy: No Chest Pain: No Congestive Heart Failure: No COPD: No Cerebrovascular Accident: No Diabetes: No Diminished Hearing: No Endocrine: No Gastrointestinal Disorders: Yes GERD: No Genitourinary: No Headaches: No Hepatitis: No Hiatal Hernia: No Heparin Induced Thrombocytopen: No Hypertension: No Immune Disorder: No Implanted Vascular Access Dvce: No Kidney Stones: No Musculoskeletal: Yes (CHRONIC PAIN) Neurologic: Yes Psychiatric: Yes (ANXIETY) Reproductive: No Respiratory: Yes Immunizations Current: Yes Migraines: No Pneumonia: Yes Radiation Therapy: No Renal Failure: No Seizures: No Shingles: Yes Sickle Cell Disease: No Sleep Apnea: No Thyroid Disease: No Ulcer: No ?: Not Menopausal: Yes : 2 Para: 2 Miscarriage: 0 : 0 Past Surgical History Abdominal Surgery: Yes (GALLBLADDER REMOVAL) AICD: No Appendectomy: Yes Arteriovenous Shunt: No Body Medical Devices: L WRIST SCREWS Cardiac Surgery: No Cholecystectomy: Yes Ear Surgery: No Endocrine Surgery: No Eye Surgery: No Genitourinary Surgery: No Gynecologic Surgery: Yes Hysterectomy: Yes Insulin Pump: No Joint Replacement: No Neurologic Surgery: No Oral Surgery: Yes (TONSILLECTOMY) Pacemaker: No Thoracic Surgery: No Tonsillectomy: Yes Other Surgery: Yes (RT BREAST LUMP BENIGN) Social History Alcohol Use: No (FORMER) Tobacco Use: Yes (1PPD) Substance Use: No Allergies-Medications (Allergen,Severity, Reaction): Coded Allergies: Sulfa (Sulfonamide Antibiotics) (Unverified Allergy, Severe, NAUSEA, ) acetaminophen (Unverified Allergy, Severe, Itching, 05/27/17) aspirin (Unverified Allergy, Severe, HIVES AND NAUSEA, 05/27/17) bee venom protein (honey bee) (Unverified Allergy, Severe, Anaphylaxis, ) codeine (Unverified Allergy, Severe, NAUSEA/HIVES, 05/27/17) diatrizoate meglumine (Unverified Allergy, Severe, HIVES, 05/27/17) gadobenic acid (Unverified Allergy, Severe, HIVES, 05/27/17) gadodiamide (Unverified Allergy, Severe, HIVES, 05/27/17) gadoteridol (Unverified Allergy, Severe, HIVES, 05/27/17) hydromorphone (Unverified Allergy, Severe, Nausea/Vomiting, 05/27/17) iodine (Unverified Allergy, Severe, Hives, 05/27/17) iodixanol (Unverified Allergy, Severe, HIVES, 05/27/17) iohexol (Unverified Allergy, Severe, HIVES, 05/27/17) meperidine (Unverified Allergy, Severe, NAUSEA, 05/27/17) oxycodone (Unverified Allergy, Severe, Itching, 05/27/17) penicillin G (Unverified Allergy, Severe, Nausea/Vomiting, 05/27/17) potassium iodide (Unverified Allergy, Severe, Hives, 05/27/17) povidone-iodine (Unverified Allergy, Severe, Hives, 05/27/17) propoxyphene (Unverified Allergy, Severe, NAUSEA, 05/27/17) shellfish derived (Unverified Allergy, Severe, HIVES, 05/27/17) sodium iodide (Unverified Allergy, Severe, Hives, 05/27/17) Reported Meds & Prescriptions Reported Meds & Active Scripts Active Xarelto (Rivaroxaban) 20 Mg Tab 20 Mg PO DAILY start after completing 15 mg pill supply Xarelto (Rivaroxaban) 15 Mg Tab 15 Mg PO Q12HR Walker with Front Wheels (Device) 1 Mis Mis Ea .ROUTE DIRECTED Primidone 50 Mg Tab 50 Mg PO DAILY Reported Temazepam 30 Mg Cap 30 Mg PO HS PRN Hydrocodone-Acetaminophen 10-325 mg Tab 1 Tab PO Q4H PRN Xanax (Alprazolam) 2 Mg Tab 2 Mg PO Q8H PRN Review of Systems Except as stated in HPI: all other systems reviewed are Neg Physical Exam Narrative GENERAL: 66yo F not in distress. SKIN: Focused skin assessment warm/dry. HEAD: Atraumatic. Normocephalic. EYES: Pupils equal and round. EOMI. ENT: No nasal bleeding or discharge. Mucous membranes pink and moist. NECK: Trachea midline. No JVD. CARDIOVASCULAR: Regular rate and rhythm. No murmur appreciated. RESPIRATORY: No accessory muscle use. Clear to auscultation. Breath sounds equal bilaterally. GASTROINTESTINAL: Abdomen soft, non-tender, nondistended. BACK: No midline thoracic or lumbar ttp. MUSCULOSKELETAL: No obvious deformities. No clubbing. No cyanosis. No edema. NEUROLOGICAL: Awake and alert. No obvious cranial nerve deficits. Motor grossly within normal limits in all extremities. Sensation equal in all extremities. Normal speech. PSYCHIATRIC: Appropriate mood and affect; insight and judgment normal. Data Data Last Documented VS Vital Signs Date Time Temp Pulse Resp B/P (MAP) Pulse Ox O2 Delivery O2 Flow Rate FiO2 05/27/17 13:40 83 16 141/80 (100) 95 Room Air 05/27/17 12:27 97.5 Orders Orders Electrocardiogram (05/27/17 12:50) Basic Metabolic Panel (Bmp) (05/27/17 12:50) Complete Blood Count With Diff (05/27/17 12:50) Magnesium (Mg) (05/27/17 12:50) Troponin I (05/27/17 12:50) Urinalysis - C+S If Indicated (05/27/17 12:50) Ct Brain W/O Iv Contrast(Rout) (05/27/17 12:50) Blood Glucose (05/27/17 12:50) Orthostatic Vital Signs (05/27/17 12:55) Urine Culture (05/27/17 14:40) Nitrofurantoin Monohyd Macrocr (Macrobid (05/27/17 15:30) Labs Laboratory Tests Test 05/27/17 12:10 05/27/17 14:40 White Blood Count 8.0 TH/MM3 Red Blood Count 5.22 MIL/MM3 Hemoglobin 15.3 GM/DL Hematocrit 47.2 % Mean Corpuscular Volume 90.5 FL Mean Corpuscular Hemoglobin 29.3 PG Mean Corpuscular Hemoglobin Concent 32.4 % Red Cell Distribution Width 15.3 % Platelet Count 321 TH/MM3 Mean Platelet Volume 9.4 FL Neutrophils (%) (Auto) 72.5 % Lymphocytes (%) (Auto) 16.3 % Monocytes (%) (Auto) 6.4 % Eosinophils (%) (Auto) 1.3 % Basophils (%) (Auto) 3.5 % Neutrophils # (Auto) 5.8 TH/MM3 Lymphocytes # (Auto) 1.3 TH/MM3 Monocytes # (Auto) 0.5 TH/MM3 Eosinophils # (Auto) 0.1 TH/MM3 Basophils # (Auto) 0.3 TH/MM3 CBC Comment DIFF FINAL Differential Comment Blood Urea Nitrogen 14 MG/DL Creatinine 0.86 MG/DL Random Glucose 100 MG/DL Calcium Level 8.9 MG/DL Magnesium Level 2.5 MG/DL Sodium Level 139 MEQ/L Potassium Level 3.6 MEQ/L Chloride Level 105 MEQ/L Carbon Dioxide Level 26.6 MEQ/L Anion Gap 7 MEQ/L Estimat Glomerular Filtration Rate 66 ML/MIN Troponin I LESS THAN 0.02 NG/ML Urine Collection Type CLEAN CATCH Urine Color YELLOW Urine Turbidity SLIGHT Urine pH 5.5 Urine Specific O'Brien 1.011 Urine Protein NEG mg/dL Urine Glucose (UA) NEG mg/dL Urine Ketones NEG mg/dL Urine Occult Blood NEG Urine Nitrite POS Urine Bilirubin NEG Urine Leukocyte Esterase NEG Urine WBC 3-5 /hpf Urine WBC Clumps FEW Urine Squamous Epithelial Cells 0-5 /hpf Urine Amorphous Sediment FEW Urine Bacteria MANY /hpf Microscopic Urinalysis Comment CULTURE INDICATED Urine Collection Time 1440 MDM Medical Decision Making Medical Screen Exam Complete: Yes Emergency Medical Condition: Yes Interpretation(s) EKG: NSR 80bpm. Normal axis. No ST segment elevation or depression. QTc 407ms. Differential Diagnosis Dehydration vs. hypoglycemia vs. ICH vs. vasovagal response Narrative Course 66yo F here with c/o generalized weakness. Pt does have increased urinary frequency. Labs reviewed, no leukocytosis. H/H normal. Troponin negative. UA positive for nitrite. Pt given macrobid. Pt also given food and said she is feeling better. Pt is very well appearing. CT brain negative. Denies any more lightheadedness after eating. Return precautions given. Diagnosis Primary Impression: UTI (urinary tract infection) Qualified Codes: N39.0 - Urinary tract infection, site not specified Patient Instructions: General Instructions Departure Forms: Tests/Procedures Additional Instructions: Please follow up with your primary care physician in 2-3 days. Return to the ED if symptoms worsen. Med/Other Pt SpecificInfo: Prescription(s) given Scripts Nitrofurantoin Monohydrate Macrocrystals (Macrobid) 100 Mg Cap 100 MG PO BID for Infection for 5 Days, #10 CAP 0 Refills Prov: Rosemary Segundo DO 05/27/17 Disposition: 01 DISCHARGE HOME Condition: Stable Rosemary Segundo DO May 27, 2017 12:54
[2017-05-27 13:00] VITALS: BP_SYST 137; BP_SYST 146; BP_SYST 158; BP_DIAS 73; BP_DIAS 78; BP_DIAS 80; RESP 18; RESP 20
[2017-05-27 13:09] LABS: AUTOMATED NEUTROPHIL # 5.8 TH/MM3 (1.8-7.7); BASOPHIL # 0.3 TH/MM3 (0-0.2); BASOPHIL % 3.5 % (0.0-2.0); EOSINOPHIL # 0.1 TH/MM3 (0-0.4); EOSINOPHIL % 1.3 % (0.0-4.0); HEMATOCRIT 47.2 % (35.0-46.0); HEMOGLOBIN 15.3 GM/DL (11.6-15.3); LYMPH % 16.3 % (9.0-44.0); LYMPHOCYTE # 1.3 TH/MM3 (1.0-4.8); MEAN CELL VOLUME 90.5 FL (80.0-100.0); MEAN CORPUSCULAR HEMOGLOBIN 29.3 PG (27.0-34.0); MEAN CORPUSCULAR HGB CONC 32.4 % (32.0-36.0); MEAN PLATELET VOLUME 9.4 FL (7.0-11.0); MONO % 6.4 % (0.0-8.0); MONOCYTE # 0.5 TH/MM3 (0-0.9); NEUT % 72.5 % (16.0-70.0); PLATELET COUNT 321 TH/MM3 (150-450); RED BLOOD COUNT 5.22 MIL/MM3 (4.00-5.30); RED CELL DISTRIBUTION WIDTH 15.3 % (11.6-17.2)
[2017-05-27 13:18] LABS: CHLORIDE 105 MEQ/L (98-107); SODIUM (NA) 139 MEQ/L (136-145)
[2017-05-27 13:21] LABS: BICARBONATE 26.6 MEQ/L (21.0-32.0); BLOOD UREA NITROGEN 14 MG/DL (7-18); CALCIUM 8.9 MG/DL (8.5-10.1); GLUCOSE,RANDOM 100 MG/DL (74-106); MAGNESIUM 2.5 MG/DL (1.5-2.5)
[2017-05-27 13:25] LABS: CREATININE 0.86 MG/DL (0.50-1.00); GLOMERULAR FILTRATION RATE 66 ML/MIN (>89)
[2017-05-27 13:29] LABS: TROPONIN I LESS THAN 0.02 NG/ML (0.02-0.05)
[2017-05-27 13:40] VITALS: BP 141/80; PULSE 83; RESP 16; O2SAT 95
--- NOTE | 2017-05-27 13:58 | RADRPT ---
EXAM DATE/TIME: 05/27/2017 13:27 [facility] COMPARISON: CT BRAIN W/O CONTRAST, March 17, 2014, 11:56. INDICATIONS : Weakness, dizziness. RADIATION DOSE: 57.75 CTDIvol (mGy) MEDICAL HISTORY : Cardiovascular disease. SURGICAL HISTORY : Cholecystectomy. Appendectomy.Hysterectomy. ENCOUNTER: Initial ACUITY: 1 day PAIN SCALE: 0/10 LOCATION: cranial TECHNIQUE: Multiple contiguous axial images were obtained of the head. Using automated exposure control and adj ustment of the mA and/or kV according to patient size, radiation dose was kept as low as reasonably a chievable to obtain optimal diagnostic quality images. DICOM format image data is available electro nically for review and comparison. FINDINGS: CEREBRUM: Chronic periventricular white matter hypodensity indicating chronic ischemic change. Old right basal ganglia lacunar infarct. The ventricles are normal for age. No evidence of midline shift, mass lesio n, hemorrhage or acute infarction. No extra-axial fluid collections are seen. POSTERIOR FOSSA: The cerebellum and brainstem are intact. The 4th ventricle is midline. The cerebellopontine angle i s unremarkable. EXTRACRANIAL: The visualized portion of the orbits is intact. SKULL: The calvaria is intact. No evidence of skull fracture. CONCLUSION: No acute intracranial findings. Dayo Bose MD on May 27, 2017 at 13:53 Board Certified Radiologist. This report was verified electronically.
[2017-05-27 14:46] LABS: BILIRUBIN, URINE NEG (NEG); BLOOD, URINE NEG (NEG); GLUCOSE,URINE NEG (NEG); KETONE, URINE NEG (NEG); NITRITE,URINE POS (NEG); PH, URINE 5.5 (5.0-8.5); URINE LEUKOCYTE ESTERASE NEG (NEG)
[2017-05-27 14:56] LABS: URINE COLOR YELLOW (YELLW/STRAW)
[2017-05-27 14:57] LABS: AMORPHOUS SEDIMENT, URINE FEW; BACTERIA, URINE MANY /hpf; SQUAMOUS EPITHELIAL CELL URINE 0-5 /hpf (0-5); WHITE BLOOD CELL CLUMPS FEW
[2017-05-27] MEDS ORDERED: NITROFURANTOIN MONOHYD MACROCR 100 MG CAP PO ONE (15:30)
[2017-05-27] MEDS ORDERED: MACR100C2 PO (15:33)
--- NOTE | 2017-05-28 12:21 | EKG ---
Date Performed: 05/27/2017 Time Performed: 12:58:06 PTAGE: 66 years EKG: Sinus rhythm NORMAL ECG PREVIOUS TRACING : 02/27/2017 08.04 Since the prior tracing, there has been no significant pro DOCTOR: Benoit Luque Interpretating Date/Time 05/28/2017 12:19:38
== END 2017-05-27 16:02 | disposition home or self-care (01) ==
LOC: PHED 12:15
DX: N39.0 Urinary tract infection, site not specified (principal); J45.909 Unspecified asthma, uncomplicated; F32.9 Major depressive disorder, single episode, unspecified; G89.29 Other chronic pain; F17.210 Nicotine dependence, cigarettes, uncomplicated; Z79.01 Long term (current) use of anticoagulants; Z79.899 Other long term (current) drug therapy
CPT/HCPCS: 70450; 80048; 81001; 83735; 84484; 85025; 87086; 93005; 99285

== ENCOUNTER 2017-06-13 11:44 | Emergency (ER) | payer MEDICARE ==
[~2017-06-13] VITALS: Ht 170.2 cm; Wt 108.0 kg
[~2017-06-13 11:44] MED LIST changes: +MACR100C2 PO; -VALT500T PO
[2017-06-13 12:15] VITALS: BP 148/97; PULSE 90; RESP 16; TEMP 98.1; O2SAT 95
[2017-06-13 13:27] LABS: AUTOMATED NEUTROPHIL # 6.1 TH/MM3 (1.8-7.7); BASOPHIL # 0.1 TH/MM3 (0-0.2); BASOPHIL % 0.9 % (0.0-2.0); EOSINOPHIL # 0.1 TH/MM3 (0-0.4); EOSINOPHIL % 1.4 % (0.0-4.0); HEMATOCRIT 43.2 % (35.0-46.0); HEMOGLOBIN 14.1 GM/DL (11.6-15.3); LYMPHOCYTE # 1.4 TH/MM3 (1.0-4.8); MEAN CELL VOLUME 88.9 FL (80.0-100.0); MEAN CORPUSCULAR HGB CONC 32.6 % (32.0-36.0); MEAN PLATELET VOLUME 9.1 FL (7.0-11.0); MONO % 3.7 % (0.0-8.0); MONOCYTE # 0.3 TH/MM3 (0-0.9); PLATELET COUNT 314 TH/MM3 (150-450); RED BLOOD COUNT 4.85 MIL/MM3 (4.00-5.30); RED CELL DISTRIBUTION WIDTH 15.1 % (11.6-17.2)
[2017-06-13 13:35] LABS: CHLORIDE 105 MEQ/L (98-107); SODIUM (NA) 138 MEQ/L (136-145)
[2017-06-13 13:38] LABS: CALCIUM 8.4 MG/DL (8.5-10.1)
[2017-06-13 13:39] LABS: ALBUMIN 3.3 GM/DL (3.4-5.0); BICARBONATE 28.3 MEQ/L (21.0-32.0); BLOOD UREA NITROGEN 20 MG/DL (7-18); GLUCOSE,RANDOM 90 MG/DL (74-106); INTERNATIONAL NORMALIZED RATIO 4.8 RATIO; PROTHROMBIN TIME - PATIENT 47.9 SEC (9.8-11.6)
[2017-06-13 13:42] LABS: ALT (GPT) 18 U/L (10-53); AST (GOT) 15 U/L (15-37); CREATININE 0.72 MG/DL (0.50-1.00); GLOMERULAR FILTRATION RATE 81 ML/MIN (>89)
[2017-06-13 13:43] LABS: TOTAL BILIRUBIN ADULT 0.2 MG/DL (0.2-1.0); TOTAL PROTEIN 7.1 GM/DL (6.4-8.2)
[2017-06-13 13:45] LABS: ALKALINE PHOSPHATASE 126 U/L (45-117)
[2017-06-13 14:00] VITALS: BP 138/75; PULSE 82; RESP 18; O2SAT 96
--- NOTE | 2017-06-13 14:08 | RADRPT ---
EXAM DATE/TIME: 06/13/2017 13:24 [facility] COMPARISON: US LEG LEFT VENOUS DOPPLER, May 06, 2017, 12:00. INDICATIONS : Continued left leg pain and swelling. MEDICAL HISTORY : Arthritis. Left leg pain. Neuropathy. Pneumonia. Shingles. Right breast lump, benign. SURGICAL HISTORY : Tonsillectomy. Cholecystectomy. Appendectomy. Hysterectomy. Left wrist surgery. Right ankle surgery. ENCOUNTER: Subsequent ACUITY: 1 month PAIN SCORE: 8/10 LOCATION: Left leg. TECHNIQUE: Venous ultrasound of the leg was performed from the inguinal ligament to the proximal calf. Real-isabel e, color Doppler and spectral tracing, compression and augmentation techniques were used. FINDINGS: As seen previously, echogenic material is identified in the lumen of the common femoral vein as well as the proximal and mid femoral vein. Vessel is incompletely compressible in these locations. There i s both occlusive and nonocclusive thrombus on Doppler interrogation but I do believe that there is so me interval improvement. More peripherally, the popliteal vein and trifurcation tributaries are paten t. CONCLUSION: 1. Occlusive and nonocclusive thrombus from the common femoral vein to the mid superficial femoral ve in. 2. There does appear to be some interval improvement with recanalization of some segments of the deep venous system when compared to the prior. Andre Johnson MD on June 13, 2017 at 14:03 Board Certified Radiologist. This report was verified electronically.
--- NOTE | 2017-06-13 14:21 | PD ---
HPI Chief Complaint: Edema Time Seen by Provider: 12:45 Travel History International Travel<30 days: No Contact w/Intl Traveler<30days: No Traveled to known affect area: No History of Present Illness HPI Patient is a 66-year-old female comes in complaining of left leg swelling. She has history of DVT and is currently taking Coumadin for this. She denies any chest pain or shortness of breath. She denies any falls or injuries to her leg. She does not remember of her leg was swollen when she was diagnosed with a DVT a few weeks ago. She says she is out of her pain medicine. Nothing seems to make her symptoms better or worse. Severity is mild. PFSH Past Medical History Hx Anticoagulant Therapy: Yes (COUMADIN) Arthritis: Yes Asthma: Yes Autoimmune Disease: No Anxiety: Yes Depression: Yes Heart Rhythm Problems: No Cancer: No Cardiovascular Problems: Yes High Cholesterol: No Chemotherapy: No Chest Pain: No Congestive Heart Failure: No COPD: No Cerebrovascular Accident: No Diabetes: No Diminished Hearing: No Endocrine: No Gastrointestinal Disorders: Yes GERD: No Genitourinary: No Headaches: No Hepatitis: No Hiatal Hernia: No Heparin Induced Thrombocytopen: No Hypertension: No Immune Disorder: No Implanted Vascular Access Dvce: No Kidney Stones: No Musculoskeletal: Yes (CHRONIC PAIN) Neurologic: Yes Psychiatric: Yes (ANXIETY) Reproductive: No Respiratory: Yes Immunizations Current: Yes Migraines: No Pneumonia: Yes Radiation Therapy: No Renal Failure: No Seizures: No Shingles: Yes Sickle Cell Disease: No Sleep Apnea: No Thyroid Disease: No Ulcer: No ?: Not Menopausal: Yes : 2 Para: 2 Miscarriage: 0 : 0 Past Surgical History Abdominal Surgery: Yes (GALLBLADDER REMOVAL) AICD: No Appendectomy: Yes Arteriovenous Shunt: No Body Medical Devices: L WRIST SCREWS Cardiac Surgery: No Cholecystectomy: Yes Ear Surgery: No Endocrine Surgery: No Eye Surgery: No Genitourinary Surgery: No Gynecologic Surgery: Yes Hysterectomy: Yes Insulin Pump: No Joint Replacement: No Neurologic Surgery: No Oral Surgery: Yes (TONSILLECTOMY) Pacemaker: No Thoracic Surgery: No Tonsillectomy: Yes Other Surgery: Yes (RT BREAST LUMP BENIGN) Social History Alcohol Use: No (FORMER) Tobacco Use: Yes (1PPD) Substance Use: No Allergies-Medications (Allergen,Severity, Reaction): Coded Allergies: Sulfa (Sulfonamide Antibiotics) (Unverified Allergy, Severe, NAUSEA, ) acetaminophen (Unverified Allergy, Severe, Itching, 06/13/17) aspirin (Unverified Allergy, Severe, HIVES AND NAUSEA, 06/13/17) bee venom protein (honey bee) (Unverified Allergy, Severe, Anaphylaxis, ) codeine (Unverified Allergy, Severe, NAUSEA/HIVES, 06/13/17) diatrizoate meglumine (Unverified Allergy, Severe, HIVES, 06/13/17) gadobenic acid (Unverified Allergy, Severe, HIVES, 06/13/17) gadodiamide (Unverified Allergy, Severe, HIVES, 06/13/17) gadoteridol (Unverified Allergy, Severe, HIVES, 06/13/17) hydromorphone (Unverified Allergy, Severe, Nausea/Vomiting, 06/13/17) iodine (Unverified Allergy, Severe, Hives, 06/13/17) iodixanol (Unverified Allergy, Severe, HIVES, 06/13/17) iohexol (Unverified Allergy, Severe, HIVES, 06/13/17) meperidine (Unverified Allergy, Severe, NAUSEA, 06/13/17) oxycodone (Unverified Allergy, Severe, Itching, 06/13/17) penicillin G (Unverified Allergy, Severe, Nausea/Vomiting, 06/13/17) potassium iodide (Unverified Allergy, Severe, Hives, 06/13/17) povidone-iodine (Unverified Allergy, Severe, Hives, 06/13/17) propoxyphene (Unverified Allergy, Severe, NAUSEA, 06/13/17) shellfish derived (Unverified Allergy, Severe, HIVES, 06/13/17) sodium iodide (Unverified Allergy, Severe, Hives, 06/13/17) Reported Meds & Prescriptions Reported Meds & Active Scripts Active Macrobid (Nitrofurantoin Monoh/Nitrofur Macro) 100 Mg Cap 100 Mg PO BID 5 Days Xarelto (Rivaroxaban) 20 Mg Tab 20 Mg PO DAILY start after completing 15 mg pill supply Xarelto (Rivaroxaban) 15 Mg Tab 15 Mg PO Q12HR Walker with Front Wheels (Device) 1 Mis Mis Ea .ROUTE DIRECTED Primidone 50 Mg Tab 50 Mg PO DAILY Reported Temazepam 30 Mg Cap 30 Mg PO HS PRN Hydrocodone-Acetaminophen 10-325 mg Tab 1 Tab PO Q4H PRN Xanax (Alprazolam) 2 Mg Tab 2 Mg PO Q8H PRN Review of Systems Except as stated in HPI: all other systems reviewed are Neg General / Constitutional: No: Fever, Chills HENT: No: Headaches, Lightheadedness Cardiovascular: No: Chest Pain or Discomfort Respiratory: No: Shortness of Breath Gastrointestinal: No: Nausea, Vomiting Musculoskeletal: Positive: Edema Skin: No Rash, No Change in Pigmentation Neurologic: No: Weakness, Dizziness Physical Exam Narrative GENERAL: Awake and alert, in no acute distress. SKIN: Focused skin assessment warm/dry. No wounds or signs of infection. HEAD: Atraumatic. Normocephalic. EYES: Pupils equal and round. No scleral icterus. ENT: Mucous membranes pink and moist. NECK: Trachea midline. No JVD. CARDIOVASCULAR: Regular rate and rhythm. No murmur appreciated. RESPIRATORY: No accessory muscle use. Clear to auscultation. Breath sounds equal bilaterally. MUSCULOSKELETAL: No obvious deformities. No clubbing. No cyanosis. 2+ edema to the left lower extremity. Pedal pulses intact. NEUROLOGICAL: Awake and alert. No obvious cranial nerve deficits. Motor grossly within normal limits. Normal speech. PSYCHIATRIC: Appropriate mood and affect; insight and judgment normal. Data Data Last Documented VS Vital Signs Date Time Temp Pulse Resp B/P (MAP) Pulse Ox O2 Delivery O2 Flow Rate FiO2 06/13/17 12:15 98.1 90 16 148/97 (114) 95 Orders Orders Iv Access Insert/Monitor (06/13/17 12:54) Complete Blood Count With Diff (06/13/17 12:54) Comprehensive Metabolic Panel (06/13/17 12:54) Act Partial Throm Time (Ptt) (06/13/17 12:54) Prothrombin Time / Inr (Pt) (06/13/17 12:54) Us Leg Venous Doppler (06/13/17 ) Labs Laboratory Tests Test 06/13/17 13:15 White Blood Count 8.0 TH/MM3 Red Blood Count 4.85 MIL/MM3 Hemoglobin 14.1 GM/DL Hematocrit 43.2 % Mean Corpuscular Volume 88.9 FL Mean Corpuscular Hemoglobin 29.0 PG Mean Corpuscular Hemoglobin Concent 32.6 % Red Cell Distribution Width 15.1 % Platelet Count 314 TH/MM3 Mean Platelet Volume 9.1 FL Neutrophils (%) (Auto) 77.0 % Lymphocytes (%) (Auto) 17.0 % Monocytes (%) (Auto) 3.7 % Eosinophils (%) (Auto) 1.4 % Basophils (%) (Auto) 0.9 % Neutrophils # (Auto) 6.1 TH/MM3 Lymphocytes # (Auto) 1.4 TH/MM3 Monocytes # (Auto) 0.3 TH/MM3 Eosinophils # (Auto) 0.1 TH/MM3 Basophils # (Auto) 0.1 TH/MM3 CBC Comment DIFF FINAL Differential Comment Prothrombin Time 47.9 SEC Prothromb Time International Ratio 4.8 RATIO Activated Partial Thromboplast Time 38.3 SEC Blood Urea Nitrogen 20 MG/DL Creatinine 0.72 MG/DL Random Glucose 90 MG/DL Total Protein 7.1 GM/DL Albumin 3.3 GM/DL Calcium Level 8.4 MG/DL Alkaline Phosphatase 126 U/L Aspartate Amino Transf (AST/SGOT) 15 U/L Alanine Aminotransferase (ALT/SGPT) 18 U/L Total Bilirubin 0.2 MG/DL Sodium Level 138 MEQ/L Potassium Level 3.9 MEQ/L Chloride Level 105 MEQ/L Carbon Dioxide Level 28.3 MEQ/L Anion Gap 5 MEQ/L Estimat Glomerular Filtration Rate 81 ML/MIN MDM Medical Decision Making Medical Screen Exam Complete: Yes Emergency Medical Condition: Yes Medical Record Reviewed: Yes Differential Diagnosis DVT versus dependent edema versus decreased kidney function Narrative Course Patient is a 66-year-old female comes in complaining of left leg swelling. Exam shows edema of the left lower extremity. IV established, labs sent. Labs show an INR 4.8, no other acute abnormalities. Ultrasound performed of the left leg show some improvement of her clot burden in that leg. Last 24 hours Impressions Lower Extremity Ultrasound 06/13/17 0000 Signed Impressions: Service Date/Time: Tuesday, June 13, 2017 13:24 - CONCLUSION: 1. Occlusive and nonocclusive thrombus from the common femoral vein to the mid superficial femoral vein. 2. There does appear to be some interval improvement with recanalization of some segments of the deep venous system when compared to the prior. Andre Johnson MD Patient advised to hold her Coumadin for 1 day and then restart. Advised to follow-up with her doctor especially for monitoring of her INR. Advised to keep her leg elevated and wear a compression stocking to help with the swelling. Advised to return to the ED as needed for any worsening symptoms. Diagnosis Primary Impression: Left leg swelling Patient Instructions: Edema (ED), General Instructions Additional Instructions: Hold her Coumadin for 1 day, and then restart. Follow-up with your doctor to have your INR rechecked as soon as possible. Keep her leg elevated to help with the swelling. You can also try wearing a compression stocking to help with the swelling. Return to the ED as needed for any worsening symptoms. Disposition: 01 DISCHARGE HOME Condition: Stable Donna Munguia MD Jun 13, 2017 14:21
[2017-06-13] MEDS ORDERED: WARF-20 PO (14:43)
[2017-06-13 14:44] VITALS: BP 140/85
== END 2017-06-13 15:08 | disposition home or self-care (01) ==
LOC: PHED 11:44
DX: M79.89 Other specified soft tissue disorders (principal); I82.419 Acute embolism and thrombosis of unspecified femoral vein; J45.909 Unspecified asthma, uncomplicated; F32.9 Major depressive disorder, single episode, unspecified; G89.29 Other chronic pain; F41.9 Anxiety disorder, unspecified; F17.210 Nicotine dependence, cigarettes, uncomplicated; Z79.01 Long term (current) use of anticoagulants
CPT/HCPCS: 80053; 85025; 85610; 85730; 93971

== ENCOUNTER 2017-06-25 08:53 | Emergency (ER) | payer MEDICARE ==
[~2017-06-25] VITALS: Ht 170.2 cm; Wt 104.4 kg
[~2017-06-25 08:53] MED LIST changes: -MACR100C2 PO; +WARF-20 PO; -XARE15TA PO; -XARE20TA PO
[2017-06-25 08:55] VITALS: BP 166/85; PULSE 90; RESP 18; TEMP 98; O2SAT 94
[2017-06-25] MEDS ORDERED: VENL25TA PO (09:12)
[2017-06-25 10:14] LABS: BILIRUBIN, URINE NEG (NEG); BLOOD, URINE NEG (NEG); GLUCOSE,URINE NEG (NEG); KETONE, URINE TRACE mg/dL (NEG); NITRITE,URINE POS (NEG); URINE LEUKOCYTE ESTERASE NEG (NEG)
--- NOTE | 2017-06-25 10:19 | RADRPT ---
EXAM DATE/TIME: 06/25/2017 09:41 [facility] COMPARISON: No previous studies available for comparison. INDICATIONS : Right low back pain for one week. Evaluate for renal stone. ORAL CONTRAST: No oral contrast ingested. RADIATION DOSE: 23.95 CTDIvol (mGy) MEDICAL HISTORY : Anticoagulant therapy. SURGICAL HISTORY : Cholecystectomy. Appendectomy.Hysterectomy.Kyphoplasty. ENCOUNTER: Initial ACUITY: 1 week PAIN SCALE: 9/10 LOCATION: Right flank TECHNIQUE: Volumetric scanning of the abdomen and pelvis was performed. Using automated exposure control and ad justment of the mA and/or kV according to patient size, radiation dose was kept as low as reasonably achievable to obtain optimal diagnostic quality images. DICOM format image data is available electro nically for review and comparison. FINDINGS: LOWER LUNGS: The visualized lower lungs are clear. LIVER: Homogeneous density without lesion. There is no dilation of the biliary tree. The patient is status post cholecystectomy. SPLEEN: Normal size without lesion. PANCREAS: Within normal limits. KIDNEYS: Normal in size and shape. Renal stones are not seen. There is cystic change in the central aspect of the kidneys likely related to parapelvic cyst or minimal fullness of the collecting system. The urete rs are normal.. ADRENAL GLANDS: Within normal limits. VASCULAR: There is no aortic aneurysm. Arterial calcifications are seen throughout. BOWEL/MESENTERY: There a few scattered colonic diverticula seen without inflammatory change. ABDOMINAL WALL: Within normal limits. RETROPERITONEUM: There is no lymphadenopathy. BLADDER: No wall thickening or mass. REPRODUCTIVE: The patient is status post hysterectomy. INGUINAL: There is no lymphadenopathy or hernia. MUSCULOSKELETAL: The patient is status post vertebroplasty at L1. There is degenerative change throughout the lumbar s pine. CONCLUSION: 1. No renal stones are seen. 2. Cystic change in the central aspect of the kidneys bilaterally likely related to parapelvic cysts versus minimal fullness of the collecting system. The ureters are normal. 3. Status post vertebroplasty at L1. There is degenerative change in lumbar spine. 4. There are a few scattered colonic diverticula seen. Dakota Fu MD on June 25, 2017 at 10:13 Board Certified Radiologist. This report was verified electronically.
[2017-06-25 10:24] LABS: URINE COLOR YELLOW (YELLW/STRAW)
[2017-06-25 10:25] LABS: BACTERIA, URINE OCC /hpf; MUCUS URINE FEW /lpf (OCC); WBC, URINE 0-2 /hpf (0-5)
[2017-06-25] MEDS ORDERED: CIPR-9 PO (10:37)
--- NOTE | 2017-06-25 10:38 | PD ---
HPI Chief Complaint: Back/ Neck Pain or Injury Time Seen by Provider: 09:13 Travel History International Travel<30 days: No Contact w/Intl Traveler<30days: No Traveled to known affect area: No History of Present Illness HPI This is a 66-year-old female here with right low back pain 1 week. She reports she had a slip and fall outside a [employer] restaurant approximately a week ago and believes the pain is related to that. She denies head injury during that fall or loss of consciousness. No headaches, visual changes, dizziness or weakness since the fall. She is anticoagulated. She also had a UTI 1 month ago and reports urinary frequency and dysuria for several days. No fever chills. No nausea or vomiting. Back pain is mild to moderate. It is worse with movement and twisting of the torso area and relieved with rest. She is also reporting that she is out of her pain medication. PFSH Past Medical History Hx Anticoagulant Therapy: Yes (COUMADIN) Arthritis: Yes Asthma: Yes Autoimmune Disease: No Anxiety: Yes Depression: Yes Heart Rhythm Problems: No Cancer: No Cardiovascular Problems: Yes High Cholesterol: No Chemotherapy: No Chest Pain: No Congestive Heart Failure: No COPD: No Cerebrovascular Accident: No Diabetes: No Diminished Hearing: No Endocrine: No Gastrointestinal Disorders: Yes GERD: No Genitourinary: No Headaches: No Hepatitis: No Hiatal Hernia: No Heparin Induced Thrombocytopen: No Hypertension: No Immune Disorder: No Implanted Vascular Access Dvce: No Kidney Stones: No Musculoskeletal: Yes (CHRONIC PAIN) Neurologic: Yes Psychiatric: Yes (ANXIETY) Reproductive: No Respiratory: Yes Immunizations Current: Yes Migraines: No Pneumonia: Yes Radiation Therapy: No Renal Failure: No Seizures: No Shingles: Yes Sickle Cell Disease: No Sleep Apnea: No Thyroid Disease: No Ulcer: No Influenza Vaccination: Yes ?: Not Menopausal: Yes : 2 Para: 2 Miscarriage: 0 : 0 Past Surgical History Abdominal Surgery: Yes (GALLBLADDER REMOVAL) AICD: No Appendectomy: Yes Arteriovenous Shunt: No Body Medical Devices: L WRIST SCREWS Cardiac Surgery: No Cholecystectomy: Yes Ear Surgery: No Endocrine Surgery: No Eye Surgery: No Genitourinary Surgery: No Gynecologic Surgery: Yes Hysterectomy: Yes Insulin Pump: No Joint Replacement: No Neurologic Surgery: No Oral Surgery: Yes (TONSILLECTOMY) Pacemaker: No Thoracic Surgery: No Tonsillectomy: Yes Other Surgery: Yes (RT BREAST LUMP BENIGN) Social History Alcohol Use: No (FORMER) Tobacco Use: No Substance Use: No Allergies-Medications (Allergen,Severity, Reaction): Coded Allergies: Sulfa (Sulfonamide Antibiotics) (Unverified Allergy, Severe, NAUSEA, ) acetaminophen (Unverified Allergy, Severe, Itching, 06/25/17) aspirin (Unverified Allergy, Severe, HIVES AND NAUSEA, 06/25/17) bee venom protein (honey bee) (Unverified Allergy, Severe, Anaphylaxis, ) codeine (Unverified Allergy, Severe, NAUSEA/HIVES, 06/25/17) diatrizoate meglumine (Unverified Allergy, Severe, HIVES, 06/25/17) gadobenic acid (Unverified Allergy, Severe, HIVES, 06/25/17) gadodiamide (Unverified Allergy, Severe, HIVES, 06/25/17) gadoteridol (Unverified Allergy, Severe, HIVES, 06/25/17) hydromorphone (Unverified Allergy, Severe, Nausea/Vomiting, 06/25/17) iodine (Unverified Allergy, Severe, Hives, 06/25/17) iodixanol (Unverified Allergy, Severe, HIVES, 06/25/17) iohexol (Unverified Allergy, Severe, HIVES, 06/25/17) meperidine (Unverified Allergy, Severe, NAUSEA, 06/25/17) oxycodone (Unverified Allergy, Severe, Itching, 06/25/17) penicillin G (Unverified Allergy, Severe, Nausea/Vomiting, 06/25/17) potassium iodide (Unverified Allergy, Severe, Hives, 06/25/17) povidone-iodine (Unverified Allergy, Severe, Hives, 06/25/17) propoxyphene (Unverified Allergy, Severe, NAUSEA, 06/25/17) shellfish derived (Unverified Allergy, Severe, HIVES, 06/25/17) sodium iodide (Unverified Allergy, Severe, Hives, 06/25/17) Reported Meds & Prescriptions Reported Meds & Active Scripts Active Walker with Front Wheels (Device) 1 Mis Mis Ea .ROUTE DIRECTED Primidone 50 Mg Tab 50 Mg PO DAILY Reported Effexor (Venlafaxine HCl) 25 Mg Tab 25 Mg PO Q12H Warfarin 4 Mg Tab 4 Mg PO DAILY Temazepam 30 Mg Cap 30 Mg PO HS PRN Xanax (Alprazolam) 2 Mg Tab 2 Mg PO Q8H PRN Review of Systems Except as stated in HPI: all other systems reviewed are Neg General / Constitutional: No: Fever Eyes: No: Visual changes HENT: No: Headaches Cardiovascular: No: Chest Pain or Discomfort Respiratory: No: Shortness of Breath Gastrointestinal: No: Abdominal Pain Genitourinary: Positive: Frequency, Dysuria Musculoskeletal: Positive: Pain (right low back pain) Physical Exam Narrative GENERAL: Alert and well-appearing 66-year-old female SKIN: Warm and dry. HEAD: Normocephalic. Atraumatic EYES: Pupils equal, round, react to light. EOMs intact. No injection or drainage. NECK: Supple. No midline spine tenderness. CARDIOVASCULAR: Regular rate and rhythm RESPIRATORY: Breath sounds equal bilaterally. No accessory muscle use. GASTROINTESTINAL: Abdomen soft, non-tender, nondistended. No guarding or rebound. MUSCULOSKELETAL: No cyanosis, or edema. Normal strength and sensation in lower extremity. Patient ambulatory with a steady gait. BACK: +TTP lumbar paraspinous/flank region. No overlying ecchymosis. No cervical, thoracic, lumbar spine tenderness. Without obvious deformity. Mild right CVA tenderness. Data Data Last Documented VS Vital Signs Date Time Temp Pulse Resp B/P (MAP) Pulse Ox O2 Delivery O2 Flow Rate FiO2 06/25/17 08:55 98.0 90 18 166/85 (112) 94 Orders Orders Urinalysis - C+S If Indicated (06/25/17 08:59) Ct Abd/Pel W/O Iv Contrast (06/25/17 09:20) Urine Culture (06/25/17 10:00) Labs Laboratory Tests Test 06/25/17 10:00 Urine Collection Type CLEAN CATCH Urine Color YELLOW Urine Turbidity CLEAR Urine pH 6.0 Urine Specific [place] 1.033 Urine Protein TRACE mg/dL Urine Glucose (UA) NEG mg/dL Urine Ketones TRACE mg/dL Urine Occult Blood NEG Urine Nitrite POS Urine Bilirubin NEG Urine Leukocyte Esterase NEG Urine WBC 0-2 /hpf Urine Squamous Epithelial Cells 6-8 /hpf Urine Bacteria OCC /hpf Urine Mucus FEW /lpf Microscopic Urinalysis Comment CULTURE INDICATED Urine Collection Time 10:[address] [facility] Medical Decision Making Medical Screen Exam Complete: Yes Emergency Medical Condition: Yes Differential Diagnosis Lumbar strain, renal contusion, UTI, pyelonephritis, nephrolithiasis Narrative Course This is a 66-year-old female here with right low back and flank pain after a trip and fall approximately one week ago. She is also reporting UTI like symptoms. He is well-appearing. Her vital signs are stable. Her abdomen is soft and nontender. She has a normal neurologic exam. She is anticoagulated on warfarin for DVT. It has been one week since her fall she denies any headaches, visual changes, dizziness. I offered CT scan and she declined. I do not suspect ICH. She does have right sided low back/flank pain without midline spine tenderness. UA is suggestive of UTI. CT abdomen and pelvis is negative for renal stone or renal trauma. Findings were discussed with patient. She'll be treated with Cipro for UTI. Instructed to follow-up the primary doctor. He is stable and ready for discharge. Diagnosis Primary Impression: Lumbar strain Qualified Codes: S39.012A - Strain of muscle, fascia and tendon of lower back , initial encounter Additional Impression: UTI (urinary tract infection) Qualified Codes: N39.0 - Urinary tract infection, site not specified Referrals: Primary Care Physician Additional Instructions: Antibiotics as directed. Tylenol or ibuprofen as needed for pain. Ice and/or heat for comfort. Follow-up with her primary doctor. Scripts Ciprofloxacin (Cipro) 500 Mg Tab 500 MG PO BID for Infection for 7 Days, #14 TAB 0 Refills Prov: Kristina Babin 06/25/17 Disposition: DISCHARGE HOME Condition: Stable Kristina Babin Jun 25, 2017 10:38
[2017-06-25] MEDS ORDERED: ACETAMINOPHEN/HYDROcodone 325 MG/5 MG TAB PO ONE (10:45)
[2017-06-25] MEDS ORDERED: ONDANSETRON ODT 4 MG TAB PO ONE (10:45)
== END 2017-06-25 11:13 | disposition home or self-care (01) ==
LOC: PHEFT 08:53
DX: S39.012A Strain of muscle, fascia and tendon of lower back, initial encounter (principal); N39.0 Urinary tract infection, site not specified; M19.90 Unspecified osteoarthritis, unspecified site; J45.909 Unspecified asthma, uncomplicated; F41.9 Anxiety disorder, unspecified; F32.9 Major depressive disorder, single episode, unspecified; W01.0XXA Fall on same level from slipping, tripping and stumbling without subsequent striking against object, initial encounter; Y92.511 Restaurant or cafe as the place of occurrence of the external cause
CPT/HCPCS: 74176; 81001; 87086; 99284